=== PATIENT | male | born 1975 | race Caucasian/White ===

== ENCOUNTER 2017-08-08 16:04 | Emergency (ER) | payer MEDICARE, MEDICAID, OTHER ==
[2017-08-08] MEDS: ASPIRIN 325 MG TAB PO (17:12)
[2017-08-08] MEDS: LIDOCAINE/MYLANTA 40 ML BTL PO (17:22)
[2017-08-08 17:27] LABS: ADD MAN DIFF? NO
[2017-08-08 17:32] LABS: BASOPHILS % 0.3 % (0.0-2.0); EOSINOPHILS % 0.5 % (0.0-7.0); HEMATOCRIT 44.4 % (42.0-52.0); HEMOGLOBIN 14.7 g/dl (14.0-18.0); LYMPHOCYTES # 1.5 10^3/ul (0.8-2.9); LYMPHOCYTES % 17.2 % (15.0-51.0); MEAN CORPUSCULAR HEMOGLOBIN 28.1 pg (29.0-33.0); MEAN CORPUSCULAR HGB CONC 33.1 g/dl (32.0-37.0); MEAN CORPUSCULAR VOLUME 84.9 fl (82.0-101.0); MEAN PLATELET VOLUME 10.6 fl (7.4-10.4); MONOCYTE # 0.6 10^3/ul (0.3-0.9); MONOCYTES % 7.1 % (0.0-11.0); NEUTROPHIL # 6.5 10^3/ul (1.6-7.5); NEUTROPHILS % 73.8 % (39.0-77.0); PLATELET COUNT 280 10^3/UL (140-415); RED BLOOD COUNT 5.23 10^6/ul (4.70-6.10); RED CELL DISTRIBUTION WIDTH 13.9 % (11.5-14.5)
[2017-08-08 17:32] LABS: WHITE BLOOD COUNT 8.8 10^3/ul (4.8-10.8)
[2017-08-08 18:05] LABS: ANION GAP 16 (8-16); BLOOD UREA NITROGEN 18 mg/dl (7-20); CALCIUM 9.7 mg/dl (8.4-10.2); CARBON DIOXIDE 25 mmol/L (21-31); CHLORIDE 103 mmol/L (97-110); CREATININE 1.07 mg/dl (0.61-1.24); GLUCOSE 113 mg/dl (70-220); POTASSIUM 4.7 mmol/L (3.5-5.1); SODIUM 139 mmol/L (135-144)
[2017-08-08 18:15] LABS: B-TYPE NATRIURETIC PEPTIDE 31 PG/ML (0-125); TROPONIN-I < 0.012 ng/ml (0.00-0.12)
[2017-08-08] MEDS: NITROGLYCERIN (SL) 0.4 MG TAB SL (18:52)
[2017-08-08] MEDS: morphine 4 MG/ML VIAL IV (19:50)
[2017-08-08 22:53] LABS: CREATINE KINASE 45 IU/L (23-200); TROPONIN-I < 0.012 ng/ml (0.00-0.12)
[2017-08-08 22:57] LABS: CK INDEX 0.5
[2017-08-08 22:58] LABS: CK-MB < 0.22 ng/ml (0.0-2.4)
[2017-08-09] MEDS: KETOROLAC 30 MG INJ IV (00:24)
== END 2017-08-09 01:06 | disposition home or self-care (01) ==
LOC: E/R 08-09 01:06
DX: G89.18 Other acute postprocedural pain (principal); I10 Essential (primary) hypertension; R40.2142 Coma scale, eyes open, spontaneous, at arrival to emergency department; R40.2362 Coma scale, best motor response, obeys commands, at arrival to emergency department; R06.00 Dyspnea, unspecified
CPT/HCPCS: 36415; 71010; 74150; 80048; 82550; 82553; 83880; 84484; 85025; 93005; 96374; 96375; 99285-25

== ENCOUNTER 2017-08-26 23:53 | Emergency (ER) | payer MEDICARE, OTHER ==
[2017-08-27] MEDS: ACETAMINOPHEN 325 MG TAB PO (07:00)
[2017-08-27] MEDS: FAMOTIDINE 20 MG TAB PO (07:00)
[2017-08-27] MEDS ORDERED: RANITIDINE 150 MG TAB PO (07:00)
== END 2017-08-27 07:00 | disposition home or self-care (01) ==
LOC: FTE 23:53
DX: J06.9 Acute upper respiratory infection, unspecified (principal); I10 Essential (primary) hypertension
CPT/HCPCS: 93005; 99283-25

== ENCOUNTER 2017-09-17 16:38 | Emergency (ER) | payer MEDICARE, OTHER ==
[2017-09-17] MEDS: ALPRAZOLAM 1 MG TAB PO (20:25)
[2017-09-17] MEDS: NITROGLYCERIN (SL) 0.4 MG TAB SL (20:25)
[2017-09-17 20:49] LABS: TROPONIN-I < 0.012 ng/ml (0.00-0.12)
== END 2017-09-17 21:11 | disposition home or self-care (01) ==
LOC: E/R 16:38
DX: R07.9 Chest pain, unspecified (principal); I10 Essential (primary) hypertension; R40.2252 Coma scale, best verbal response, oriented, at arrival to emergency department; R40.2142 Coma scale, eyes open, spontaneous, at arrival to emergency department; R40.2362 Coma scale, best motor response, obeys commands, at arrival to emergency department
CPT/HCPCS: 84484; 99283

== ENCOUNTER 2017-09-22 16:59 | Inpatient (IN) | payer MEDICARE, OTHER ==
[2017-09-22] MEDS: ASPIRIN 81 MG TAB PO (23:51)
[2017-09-23 00:30] LABS: ADD MAN DIFF? NO
[2017-09-23 00:32] LABS: BASOPHILS % 0.3 % (0.0-2.0); EOSINOPHILS # 0.2 10^3/ul (0.0-0.5); EOSINOPHILS % 1.6 % (0.0-7.0); HEMATOCRIT 44.8 % (42.0-52.0); HEMOGLOBIN 15.1 g/dl (14.0-18.0); LYMPHOCYTES # 2.4 10^3/ul (0.8-2.9); MEAN CORPUSCULAR HEMOGLOBIN 28.5 pg (29.0-33.0); MEAN CORPUSCULAR HGB CONC 33.7 g/dl (32.0-37.0); MEAN CORPUSCULAR VOLUME 84.5 fl (82.0-101.0); MEAN PLATELET VOLUME 10.8 fl (7.4-10.4); MONOCYTE # 0.9 10^3/ul (0.3-0.9); NEUTROPHIL # 5.9 10^3/ul (1.6-7.5); NEUTROPHILS % 62.9 % (39.0-77.0); PLATELET COUNT 284 10^3/UL (140-415); RED CELL DISTRIBUTION WIDTH 14.2 % (11.5-14.5)
[2017-09-23 00:32] LABS: WHITE BLOOD COUNT 9.4 10^3/ul (4.8-10.8)
[2017-09-23 00:55] LABS: PROTIME 14.4 Sec (11.9-14.9); PT RATIO 1.1
[2017-09-23 00:56] LABS: ALANINE AMINOTRANSFERASE 35 IU/L (13-69); ALBUMIN 4.8 g/dl (3.3-4.9); ALBUMIN/GLOBULIN RATIO 1.29; ALKALINE PHOSPHATASE 118 IU/L (42-121); ANION GAP 15 (8-16); ASPARTATE AMINO TRANSFERASE 29 IU/L (15-46); BILIRUBIN,INDIRECT 0.3 mg/dl (0-1.1); BILIRUBIN,TOTAL 0.3 mg/dl (0.2-1.3); BLOOD UREA NITROGEN 17 mg/dl (7-20); CALCIUM 10.4 mg/dl (8.4-10.2); CARBON DIOXIDE 27 mmol/L (21-31); CHLORIDE 101 mmol/L (97-110); CREATININE 1.09 mg/dl (0.61-1.24); GLUCOSE 102 mg/dl (70-220); POTASSIUM 3.9 mmol/L (3.5-5.1); SODIUM 139 mmol/L (135-144); TOTAL PROTEIN 8.5 g/dl (6.1-8.1)
[2017-09-23 01:08] LABS: TROPONIN-I < 0.012 ng/ml (0.00-0.12)
[2017-09-23] MEDS: morphine 2 MG INJ IV ×5 (01:53→21:58)
[2017-09-23] MEDS ORDERED: ACETAMINOPHEN 325 MG TAB PO (02:30)
[2017-09-23 05:37] LABS: CREATINE KINASE 46 IU/L (23-200)
[2017-09-23 05:47] LABS: CK INDEX 0.7
[2017-09-23 05:56] LABS: TROPONIN-I < 0.012 ng/ml (0.00-0.12)
[2017-09-23] MEDS ORDERED: HYDROCODONE/APAP (5/325) TAB PO (10:00)
[2017-09-23] MEDS ORDERED: ACETAMINOPHEN 500 MG TAB PO (10:00)
[2017-09-23] MEDS: ONDANSETRON 4 MG INJ IV ×3 (10:13→21:57)
[2017-09-23] MEDS: ASPIRIN (EC) 325 MG TAB PO (11:58)
[2017-09-23] MEDS: GABAPENTIN 100 MG CAP PO (11:58)
[2017-09-23] MEDS: SERTRALINE 100 MG TAB PO (11:58)
[2017-09-23 15:50] LABS: CREATINE KINASE 46 IU/L (23-200)
[2017-09-23 16:03] LABS: CK INDEX 0.5
[2017-09-23 16:05] LABS: CK-MB 0.23 ng/ml (0.0-2.4); TROPONIN-I < 0.012 ng/ml (0.00-0.12)
[2017-09-23] MEDS: DIPHENHYDRAMINE 50 MG CAP PO (19:38)
[2017-09-23] MEDS: predniSONE 5 MG TAB PO ×2 (19:38→21:12)
[2017-09-23] MEDS: DIAZEPAM 5 MG TAB PO ×2 (20:21→20:22)
[2017-09-23] MEDS ORDERED: MAGNESIUM OXIDE 400 MG TAB PO (21:00)
[2017-09-23] MEDS: TAMSULOSIN (SR) 0.4 MG CAP PO (21:09)
[2017-09-23] MEDS: ISOSORBIDE DINITRATE 10 MG TAB PO (21:11)
[2017-09-23] MEDS: MAGNESIUM OXIDE 400 MG TAB PO (21:11)
[2017-09-23] MEDS: ATORVASTATIN 20 MG TAB PO (21:11)
[2017-09-23] MEDS: FAMOTIDINE 20 MG TAB PO (21:13)
[2017-09-23] MEDS: CYCLOSPORINE 100 MG CAP PO (21:14)
[2017-09-24] MEDS ORDERED: ONDANSETRON 4 MG INJ (02:52)
[2017-09-24] MEDS: ZOLPIDEM 5 MG TAB PO ×2 (02:54→23:53)
[2017-09-24] MEDS: morphine 2 MG INJ IV ×6 (02:54→22:05)
[2017-09-24 05:02] LABS: ADD MAN DIFF? NO
[2017-09-24 05:13] LABS: WHITE BLOOD COUNT 9.4 10^3/ul (4.8-10.8)
[2017-09-24 05:13] LABS: BASOPHILS % 0.2 % (0.0-2.0); EOSINOPHILS % 0.2 % (0.0-7.0); HEMOGLOBIN 15.1 g/dl (14.0-18.0); LYMPHOCYTES # 1.1 10^3/ul (0.8-2.9); LYMPHOCYTES % 12.1 % (15.0-51.0); MEAN CORPUSCULAR HGB CONC 33.6 g/dl (32.0-37.0); MEAN CORPUSCULAR VOLUME 83.5 fl (82.0-101.0); MEAN PLATELET VOLUME 10.7 fl (7.4-10.4); MONOCYTE # 0.5 10^3/ul (0.3-0.9); MONOCYTES % 4.9 % (0.0-11.0); NEUTROPHIL # 7.7 10^3/ul (1.6-7.5); PLATELET COUNT 297 10^3/UL (140-415); RED BLOOD COUNT 5.39 10^6/ul (4.70-6.10); RED CELL DISTRIBUTION WIDTH 13.5 % (11.5-14.5)
[2017-09-24 05:22] LABS: INR 1.11; PROTIME 14.5 Sec (11.9-14.9); PT RATIO 1.1
[2017-09-24 05:23] LABS: PARTIAL THROMBOPLASTIN TIME 29.9 Sec (25.0-35.0)
[2017-09-24 05:35] LABS: PHOSPHORUS 4.2 mg/dl (2.5-4.9)
[2017-09-24 05:35] LABS: MAGNESIUM 1.9 mg/dl (1.7-2.5)
[2017-09-24 05:38] LABS: CHOL/HDL RATIO 5.5 RATIO; CHOLESTEROL 212 mg/dl (100-200); HDL CHOLESTEROL 38 mg/dl (27-67); LDL CHOLESTEROL,CALCULATED 143 mg/dl; TRIGLYCERIDES 155 mg/dl (0-149)
[2017-09-24 05:38] LABS: CALCIUM 10.3 mg/dl (8.4-10.2)
[2017-09-24 05:39] LABS: ANION GAP 15 (8-16); BLOOD UREA NITROGEN 19 mg/dl (7-20); CALCIUM 10.4 mg/dl (8.4-10.2); CARBON DIOXIDE 25 mmol/L (21-31); CHLORIDE 101 mmol/L (97-110); CHOLESTEROL 217 mg/dl (100-200); CREATININE 1.02 mg/dl (0.61-1.24); GLUCOSE 125 mg/dl (70-220); POTASSIUM 4.6 mmol/L (3.5-5.1); SODIUM 136 mmol/L (135-144)
[2017-09-24] MEDS: NITROGLYCERIN (SL) 0.4 MG TAB SL ×2 (08:05→08:27)
[2017-09-24] MEDS: ISOSORBIDE DINITRATE 10 MG TAB PO ×3 (09:54→20:25)
[2017-09-24] MEDS: SERTRALINE 100 MG TAB PO (09:56)
[2017-09-24] MEDS: MAGNESIUM OXIDE 400 MG TAB PO ×2 (09:56→20:23)
[2017-09-24] MEDS: CYCLOSPORINE 25 MG CAP PO (09:57)
[2017-09-24] MEDS: LORAZEPAM 2 MG INJ IV (11:00)
[2017-09-24 11:35] LABS: ADD UMIC NO; UR ASCORBIC ACID NEGATIVE (NEGATIVE); UR BILIRUBIN (Dip) NEGATIVE (NEGATIVE); UR BLOOD (Dip) NEGATIVE (NEGATIVE); UR CLARITY CLEAR (CLEAR); UR COLOR YELLOW (YELLOW); UR GLUCOSE (Dip) NEGATIVE (NEGATIVE); UR KETONES (Dip) NEGATIVE (NEGATIVE); UR LEUKOCYTE ESTERASE (Dip) NEGATIVE Leu/ul (NEGATIVE); UR NITRITE (Dip) NEGATIVE (NEGATIVE); UR SPECIFIC GRAVITY (Dip) 1.006 (1.003-1.030); UR TOTAL PROTEIN (Dip) NEGATIVE (NEGATIVE); UR UROBILINOGEN (Dip) NEGATIVE (NEGATIVE)
[2017-09-24] MEDS ORDERED: LIDOCAINE 1% (MDV) 20 ML INJ (12:12)
[2017-09-24] MEDS ORDERED: IODIXANOL LOCM 100 ML BTL (12:12)
[2017-09-24] MEDS ORDERED: HEPARIN 1000 UNITS/ML 10 ML INJ (12:13)
[2017-09-24] MEDS ORDERED: FENTAnyl 50 MCG/ML VIAL (12:13)
[2017-09-24] MEDS ORDERED: VERAPAMIL 5 MG INJ (12:13)
[2017-09-24] MEDS ORDERED: MIDAZOLAM 1 MG/ML 2 ML INJ (12:13)
[2017-09-24] MEDS ORDERED: NITROGLYCERIN (IC) 100 MCG/ML INJ (12:14)
[2017-09-24] MEDS ORDERED: DOPamine-D5W 1.6 MG/ML 250 ML (13:27)
[2017-09-24] MEDS ORDERED: AL HYDROX/MG HYDROX/SIMETH 30 ML CUP PO (14:00)
[2017-09-24] MEDS ORDERED: ACETAMINOPHEN 325 MG TAB PO (14:00)
[2017-09-24] MEDS ORDERED: ONDANSETRON 4 MG INJ IV (14:00)
[2017-09-24] MEDS: SOD CHLORIDE 0.9% 1,000 ML IV (14:39)
[2017-09-24] MEDS: ASPIRIN (EC) 325 MG TAB PO (16:46)
[2017-09-24] MEDS: GABAPENTIN 100 MG CAP PO (16:46)
[2017-09-24] MEDS: FAMOTIDINE 20 MG TAB PO ×2 (16:46→20:23)
[2017-09-24] MEDS: CYCLOSPORINE 100 MG CAP PO (20:23)
[2017-09-24] MEDS: METOPROLOL 25 MG TAB PO (20:24)
[2017-09-24] MEDS: ATORVASTATIN 20 MG TAB PO (20:25)
[2017-09-24] MEDS: TAMSULOSIN (SR) 0.4 MG CAP PO (21:56)
[2017-09-25] MEDS: morphine 2 MG INJ IV ×5 (03:06→21:23)
[2017-09-25 08:16] LABS: ADD MAN DIFF? NO
[2017-09-25 08:21] LABS: WHITE BLOOD COUNT 7.8 10^3/ul (4.8-10.8)
[2017-09-25 08:21] LABS: BASOPHILS % 0.3 % (0.0-2.0); EOSINOPHILS # 0.2 10^3/ul (0.0-0.5); EOSINOPHILS % 2.3 % (0.0-7.0); HEMATOCRIT 41.8 % (42.0-52.0); HEMOGLOBIN 13.8 g/dl (14.0-18.0); LYMPHOCYTES # 1.9 10^3/ul (0.8-2.9); LYMPHOCYTES % 24.1 % (15.0-51.0); MEAN CORPUSCULAR HEMOGLOBIN 28.1 pg (29.0-33.0); MEAN CORPUSCULAR VOLUME 85.1 fl (82.0-101.0); MEAN PLATELET VOLUME 10.6 fl (7.4-10.4); MONOCYTE # 0.8 10^3/ul (0.3-0.9); NEUTROPHIL # 4.8 10^3/ul (1.6-7.5); NEUTROPHILS % 62.3 % (39.0-77.0); PLATELET COUNT 246 10^3/UL (140-415); RED BLOOD COUNT 4.91 10^6/ul (4.70-6.10); RED CELL DISTRIBUTION WIDTH 13.4 % (11.5-14.5)
[2017-09-25] MEDS: SERTRALINE 100 MG TAB PO (08:32)
[2017-09-25] MEDS: FAMOTIDINE 20 MG TAB PO ×2 (08:32→20:22)
[2017-09-25] MEDS: predniSONE 5 MG TAB PO (08:32)
[2017-09-25] MEDS: ASPIRIN (EC) 325 MG TAB PO (08:32)
[2017-09-25] MEDS: MAGNESIUM OXIDE 400 MG TAB PO ×2 (08:32→20:22)
[2017-09-25] MEDS: GABAPENTIN 100 MG CAP PO (08:32)
[2017-09-25] MEDS: ISOSORBIDE DINITRATE 10 MG TAB PO ×2 (08:35→12:15)
[2017-09-25] MEDS: METOPROLOL 25 MG TAB PO ×2 (08:35→20:22)
[2017-09-25 08:44] LABS: ANION GAP 13 (8-16); BLOOD UREA NITROGEN 16 mg/dl (7-20); CALCIUM 9.9 mg/dl (8.4-10.2); CARBON DIOXIDE 30 mmol/L (21-31); CHLORIDE 98 mmol/L (97-110); CREATININE 1.09 mg/dl (0.61-1.24); GLUCOSE 89 mg/dl (70-220); PHOSPHORUS 4.2 mg/dl (2.5-4.9); POTASSIUM 4.3 mmol/L (3.5-5.1); SODIUM 137 mmol/L (135-144)
[2017-09-25] MEDS: CYCLOSPORINE 25 MG CAP PO (09:00)
[2017-09-25] MEDS: LISINOPRIL 10 MG TAB PO (16:01)
[2017-09-25] MEDS: CYCLOSPORINE 100 MG CAP PO (20:22)
[2017-09-25] MEDS: TAMSULOSIN (SR) 0.4 MG CAP PO (20:22)
[2017-09-25] MEDS: ATORVASTATIN 20 MG TAB PO (20:22)
[2017-09-25] MEDS: ZOLPIDEM 5 MG TAB PO (22:56)
[2017-09-26] MEDS: morphine 2 MG INJ IV ×5 (04:44→20:05)
[2017-09-26] MEDS: predniSONE 5 MG TAB PO (08:32)
[2017-09-26] MEDS: ASPIRIN (EC) 325 MG TAB PO (08:32)
[2017-09-26] MEDS: SERTRALINE 100 MG TAB PO (08:32)
[2017-09-26] MEDS: FAMOTIDINE 20 MG TAB PO ×2 (08:32→20:51)
[2017-09-26] MEDS: MAGNESIUM OXIDE 400 MG TAB PO ×2 (08:32→20:05)
[2017-09-26] MEDS: GABAPENTIN 100 MG CAP PO (08:32)
[2017-09-26] MEDS: LISINOPRIL 10 MG TAB PO (08:33)
[2017-09-26] MEDS: METOPROLOL 25 MG TAB PO ×2 (08:37→20:05)
[2017-09-26] MEDS: CYCLOSPORINE 25 MG CAP PO (08:37)
[2017-09-26 12:41] LABS: ADD UMIC YES; UR ASCORBIC ACID NEGATIVE (NEGATIVE); UR BACTERIA MANY /HPF (NONE SEEN); UR BILIRUBIN (Dip) NEGATIVE (NEGATIVE); UR BLOOD (Dip) 2+ mg/dL (NEGATIVE); UR CLARITY CLEAR (CLEAR); UR COLOR STRAW (YELLOW); UR GLUCOSE (Dip) NEGATIVE (NEGATIVE); UR KETONES (Dip) NEGATIVE (NEGATIVE); UR LEUKOCYTE ESTERASE (Dip) NEGATIVE Leu/ul (NEGATIVE); UR NITRITE (Dip) NEGATIVE (NEGATIVE); UR RBC 1 /HPF (0-5); UR SPECIFIC GRAVITY (Dip) 1.003 (1.003-1.030); UR TOTAL PROTEIN (Dip) NEGATIVE (NEGATIVE); UR UROBILINOGEN (Dip) NEGATIVE (NEGATIVE); UR WBC 1 /HPF (0-5)
[2017-09-26] MEDS: ATORVASTATIN 20 MG TAB PO (20:05)
[2017-09-26] MEDS: TAMSULOSIN (SR) 0.4 MG CAP PO (20:06)
[2017-09-26] MEDS: CYCLOSPORINE 100 MG CAP PO (20:18)
[2017-09-26] MEDS: ZOLPIDEM 5 MG TAB PO (22:43)
[2017-09-27] MEDS: morphine 2 MG INJ IV ×4 (01:14→14:58)
[2017-09-27] MEDS: ASPIRIN (EC) 325 MG TAB PO (08:57)
[2017-09-27] MEDS: MAGNESIUM OXIDE 400 MG TAB PO (08:57)
[2017-09-27] MEDS: FAMOTIDINE 20 MG TAB PO (08:58)
[2017-09-27] MEDS: METOPROLOL 25 MG TAB PO (08:58)
[2017-09-27] MEDS: GABAPENTIN 100 MG CAP PO (08:58)
[2017-09-27] MEDS: LISINOPRIL 10 MG TAB PO (08:58)
[2017-09-27] MEDS: predniSONE 5 MG TAB PO (08:58)
[2017-09-27] MEDS: SERTRALINE 100 MG TAB PO (08:58)
[2017-09-27 09:27] LABS: ADD MAN DIFF? NO
[2017-09-27 09:32] LABS: WHITE BLOOD COUNT 13.3 10^3/ul (4.8-10.8)
[2017-09-27 09:32] LABS: BASOPHILS % 0.3 % (0.0-2.0); EOSINOPHILS # 0.1 10^3/ul (0.0-0.5); EOSINOPHILS % 1.1 % (0.0-7.0); HEMATOCRIT 43.7 % (42.0-52.0); HEMOGLOBIN 14.4 g/dl (14.0-18.0); LYMPHOCYTES # 2.2 10^3/ul (0.8-2.9); LYMPHOCYTES % 16.7 % (15.0-51.0); MEAN CORPUSCULAR HEMOGLOBIN 28.5 pg (29.0-33.0); MEAN CORPUSCULAR VOLUME 86.4 fl (82.0-101.0); MEAN PLATELET VOLUME 11.1 fl (7.4-10.4); MONOCYTES % 7.5 % (0.0-11.0); NEUTROPHIL # 9.8 10^3/ul (1.6-7.5); NEUTROPHILS % 73.6 % (39.0-77.0); PLATELET COUNT 258 10^3/UL (140-415); RED BLOOD COUNT 5.06 10^6/ul (4.70-6.10); RED CELL DISTRIBUTION WIDTH 13.7 % (11.5-14.5)
[2017-09-27 10:00] LABS: ANION GAP 14 (8-16); BLOOD UREA NITROGEN 18 mg/dl (7-20); CALCIUM 9.6 mg/dl (8.4-10.2); CARBON DIOXIDE 27 mmol/L (21-31); CHLORIDE 102 mmol/L (97-110); CREATININE 1.02 mg/dl (0.61-1.24); GLUCOSE 86 mg/dl (70-220); POTASSIUM 4.4 mmol/L (3.5-5.1); SODIUM 139 mmol/L (135-144)
[2017-09-27] MEDS: CYCLOSPORINE 25 MG CAP PO (12:22)
== END 2017-09-27 19:20 | disposition home or self-care (01) | DRG 287 ==
LOC: E/R 16:59 → MS3 09-23 02:05 → MS4 09-24 21:06
PROC: 4A023N7 Measurement of Cardiac Sampling and Pressure, Left Heart, Percutaneous Approach (ICD-10-PCS; principal; 2017-09-24 12:00)
PROC: B211YZZ Fluoroscopy of Multiple Coronary Arteries using Other Contrast (ICD-10-PCS; 2017-09-24 12:00)
PROC: B215YZZ Fluoroscopy of Left Heart using Other Contrast (ICD-10-PCS; 2017-09-24 12:00)
DX: I25.10 Atherosclerotic heart disease of native coronary artery without angina pectoris (principal); I42.9 Cardiomyopathy, unspecified; I47.1 Supraventricular tachycardia; Z94.0 Kidney transplant status; E83.52 Hypercalcemia; I10 Essential (primary) hypertension; N40.0 Benign prostatic hyperplasia without lower urinary tract symptoms; E78.5 Hyperlipidemia, unspecified; K21.9 Gastro-esophageal reflux disease without esophagitis; F41.9 Anxiety disorder, unspecified; F32.9 Major depressive disorder, single episode, unspecified
CPT/HCPCS: 36415; 71045; 71046; 80048; 80053; 80061; 81001; 81003; 82306; 82310; 82465; 82550; 82553; 83735; 83970; 84100; 84443; 84484; 85025; 85610; 85730; 93005; 93306; 93458; 96374; 99285-25

== ENCOUNTER 2017-10-06 19:28 | Emergency (ER) | payer MEDICARE, MEDICAID, OTHER ==
[2017-10-06] MEDS: ASPIRIN 325 MG TAB PO (21:59)
[2017-10-06] MEDS: KETOROLAC 30 MG INJ IV (22:00)
[2017-10-06 22:12] LABS: ADD MAN DIFF? NO
[2017-10-06 22:32] LABS: WHITE BLOOD COUNT 12.3 10^3/ul (4.8-10.8)
[2017-10-06 22:32] LABS: BASOPHILS % 0.3 % (0.0-2.0); EOSINOPHILS # 0.2 10^3/ul (0.0-0.5); EOSINOPHILS % 1.3 % (0.0-7.0); HEMATOCRIT 43.3 % (42.0-52.0); HEMOGLOBIN 14.6 g/dl (14.0-18.0); LYMPHOCYTES # 2.6 10^3/ul (0.8-2.9); LYMPHOCYTES % 20.8 % (15.0-51.0); MEAN CORPUSCULAR HEMOGLOBIN 28.8 pg (29.0-33.0); MEAN CORPUSCULAR HGB CONC 33.7 g/dl (32.0-37.0); MEAN CORPUSCULAR VOLUME 85.4 fl (82.0-101.0); MEAN PLATELET VOLUME 10.5 fl (7.4-10.4); MONOCYTE # 1.1 10^3/ul (0.3-0.9); MONOCYTES % 8.8 % (0.0-11.0); NEUTROPHIL # 8.3 10^3/ul (1.6-7.5); NEUTROPHILS % 67.3 % (39.0-77.0); PLATELET COUNT 315 10^3/UL (140-415); RED BLOOD COUNT 5.07 10^6/ul (4.70-6.10); RED CELL DISTRIBUTION WIDTH 13.7 % (11.5-14.5)
[2017-10-06 22:47] LABS: ANION GAP 15 (8-16); BLOOD UREA NITROGEN 22 mg/dl (7-20); CARBON DIOXIDE 26 mmol/L (21-31); CHLORIDE 100 mmol/L (97-110); CREATININE 1.02 mg/dl (0.61-1.24); GLUCOSE 97 mg/dl (70-220); POTASSIUM 4.5 mmol/L (3.5-5.1); SODIUM 136 mmol/L (135-144)
[2017-10-06 22:58] LABS: B-TYPE NATRIURETIC PEPTIDE 57 PG/ML (0-125)
[2017-10-06 22:59] LABS: TROPONIN-I < 0.012 ng/ml (0.00-0.12)
== END 2017-10-07 00:10 | disposition home or self-care (01) ==
LOC: E/R 10-07 00:10
DX: R07.9 Chest pain, unspecified (principal); I10 Essential (primary) hypertension; Z79.82 Long term (current) use of aspirin
CPT/HCPCS: 36415; 71045; 80048; 83880; 84484; 85025; 93005; 96374; 99285-25

== ENCOUNTER 2017-10-18 14:41 | Emergency (ER) | payer MEDICARE, OTHER, MEDICAID ==
[2017-10-18] MEDS: OXYCODONE/ACETAMINOPHEN (5/325) TAB PO (19:36)
[2017-10-18 20:02] LABS: ADD MAN DIFF? NO
[2017-10-18 20:04] LABS: WHITE BLOOD COUNT 12.6 10^3/ul (4.8-10.8)
[2017-10-18 20:04] LABS: BASOPHIL # 0.1 10^3/ul (0.0-0.1); BASOPHILS % 0.4 % (0.0-2.0); EOSINOPHILS # 0.1 10^3/ul (0.0-0.5); EOSINOPHILS % 0.8 % (0.0-7.0); HEMATOCRIT 42.9 % (42.0-52.0); HEMOGLOBIN 14.2 g/dl (14.0-18.0); LYMPHOCYTES # 2.5 10^3/ul (0.8-2.9); MEAN CORPUSCULAR HGB CONC 33.1 g/dl (32.0-37.0); MEAN CORPUSCULAR VOLUME 87.6 fl (82.0-101.0); MEAN PLATELET VOLUME 11.3 fl (7.4-10.4); MONOCYTES % 8.2 % (0.0-11.0); NEUTROPHIL # 8.7 10^3/ul (1.6-7.5); PLATELET COUNT 262 10^3/UL (140-415)
[2017-10-18] MEDS: LORAZEPAM 0.5 MG TAB PO (20:10)
[2017-10-18 20:13] LABS: ANION GAP 18 (8-16); BLOOD UREA NITROGEN 25 mg/dl (7-20); CALCIUM 10.1 mg/dl (8.4-10.2); CARBON DIOXIDE 26 mmol/L (21-31); CHLORIDE 104 mmol/L (97-110); CREATININE 0.94 mg/dl (0.61-1.24); GLUCOSE 103 mg/dl (70-220); POTASSIUM 4.5 mmol/L (3.5-5.1); SODIUM 143 mmol/L (135-144)
[2017-10-18 20:29] LABS: TROPONIN-I < 0.012 ng/ml (0.00-0.12)
== END 2017-10-18 20:39 | disposition home or self-care (01) ==
LOC: E/R 14:41
DX: R07.9 Chest pain, unspecified (principal); F41.9 Anxiety disorder, unspecified; I10 Essential (primary) hypertension; I25.10 Atherosclerotic heart disease of native coronary artery without angina pectoris; Z79.82 Long term (current) use of aspirin
CPT/HCPCS: 36415; 71045; 80048; 84484; 85025; 93005; 99285-25

== ENCOUNTER 2017-10-25 16:35 | Emergency (ER) | payer MEDICARE, OTHER ==
[2017-10-25 20:46] LABS: ADD MAN DIFF? NO
[2017-10-25 20:48] LABS: WHITE BLOOD COUNT 10.5 10^3/ul (4.8-10.8)
[2017-10-25 20:48] LABS: BASOPHILS % 0.4 % (0.0-2.0); EOSINOPHILS # 0.1 10^3/ul (0.0-0.5); EOSINOPHILS % 0.9 % (0.0-7.0); HEMATOCRIT 39.7 % (42.0-52.0); HEMOGLOBIN 13.3 g/dl (14.0-18.0); LYMPHOCYTES # 2.3 10^3/ul (0.8-2.9); LYMPHOCYTES % 22.2 % (15.0-51.0); MEAN CORPUSCULAR HEMOGLOBIN 28.9 pg (29.0-33.0); MEAN CORPUSCULAR HGB CONC 33.5 g/dl (32.0-37.0); MEAN CORPUSCULAR VOLUME 86.1 fl (82.0-101.0); MEAN PLATELET VOLUME 10.2 fl (7.4-10.4); MONOCYTE # 0.9 10^3/ul (0.3-0.9); MONOCYTES % 8.2 % (0.0-11.0); NEUTROPHILS % 66.4 % (39.0-77.0); PLATELET COUNT 269 10^3/UL (140-415); RED BLOOD COUNT 4.61 10^6/ul (4.70-6.10); RED CELL DISTRIBUTION WIDTH 14.1 % (11.5-14.5)
[2017-10-25] MEDS: morphine 4 MG/ML VIAL IV (20:48)
[2017-10-25] MEDS: ONDANSETRON 4 MG INJ IV (20:48)
[2017-10-25] MEDS: TETRACAINE 0.5% 4 ML OPH BOTH EYES (20:48)
[2017-10-25] MEDS: LACTATED RINGER'S 1,000 ML IV (20:48)
[2017-10-25 21:09] LABS: INR 1.01; PROTIME 13.4 Sec (11.9-14.9)
[2017-10-25 21:10] LABS: PARTIAL THROMBOPLASTIN TIME 26.9 Sec (25.0-35.0)
[2017-10-25 21:13] LABS: ANION GAP 17 (8-16); BLOOD UREA NITROGEN 17 mg/dl (7-20); CALCIUM 9.9 mg/dl (8.4-10.2); CARBON DIOXIDE 26 mmol/L (21-31); CHLORIDE 103 mmol/L (97-110); CREATININE 0.96 mg/dl (0.61-1.24); GLUCOSE 90 mg/dl (70-220); POTASSIUM 4.5 mmol/L (3.5-5.1); SODIUM 141 mmol/L (135-144)
[2017-10-25] MEDS: KETOROLAC 30 MG INJ IV (22:19)
[2017-10-25] MEDS: DIPHENHYDRAMINE 50 MG INJ IV (22:42)
[2017-10-25] MEDS: METOCLOPRAMIDE 10 MG INJ IV (22:42)
== END 2017-10-25 23:28 | disposition home or self-care (01) ==
LOC: FTE 16:35
DX: R51 Headache (principal); I10 Essential (primary) hypertension; R55 Syncope and collapse; Z79.82 Long term (current) use of aspirin
CPT/HCPCS: 36415; 70450; 80048; 85025; 85610; 85730; 96374; 96375; 99285-25

== ENCOUNTER 2017-10-30 23:14 | Emergency (ER) | payer MEDICARE, OTHER ==
[2017-10-31] MEDS: morphine 4 MG/ML VIAL IV (08:54)
[2017-10-31] MEDS: SOD CHLORIDE 0.9% 1,000 ML IV (08:54)
[2017-10-31] MEDS: MECLIZINE 12.5 MG TAB PO (08:54)
[2017-10-31] MEDS: ONDANSETRON 4 MG INJ IV ×2 (08:54→11:38)
[2017-10-31 09:04] LABS: ADD MAN DIFF? NO
[2017-10-31 09:09] LABS: WHITE BLOOD COUNT 7.1 10^3/ul (4.8-10.8)
[2017-10-31 09:09] LABS: BASOPHILS % 0.3 % (0.0-2.0); EOSINOPHILS # 0.1 10^3/ul (0.0-0.5); EOSINOPHILS % 1.8 % (0.0-7.0); HEMATOCRIT 39.1 % (42.0-52.0); HEMOGLOBIN 13.3 g/dl (14.0-18.0); LYMPHOCYTES # 2.3 10^3/ul (0.8-2.9); LYMPHOCYTES % 32.1 % (15.0-51.0); MEAN CORPUSCULAR HEMOGLOBIN 28.7 pg (29.0-33.0); MEAN CORPUSCULAR VOLUME 84.3 fl (82.0-101.0); MEAN PLATELET VOLUME 10.3 fl (7.4-10.4); MONOCYTE # 0.8 10^3/ul (0.3-0.9); MONOCYTES % 11.2 % (0.0-11.0); NEUTROPHIL # 3.8 10^3/ul (1.6-7.5); NEUTROPHILS % 53.5 % (39.0-77.0); PLATELET COUNT 287 10^3/UL (140-415); RED BLOOD COUNT 4.64 10^6/ul (4.70-6.10); RED CELL DISTRIBUTION WIDTH 14.2 % (11.5-14.5)
[2017-10-31 09:12] LABS: INR 1.11; PROTIME 14.5 Sec (11.9-14.9); PT RATIO 1.1
[2017-10-31 09:13] LABS: PARTIAL THROMBOPLASTIN TIME 30.2 Sec (25.0-35.0)
[2017-10-31 09:16] LABS: ALANINE AMINOTRANSFERASE 36 IU/L (13-69); ALBUMIN 4.7 g/dl (3.3-4.9); ALBUMIN/GLOBULIN RATIO 1.46; ALKALINE PHOSPHATASE 104 IU/L (42-121); ANION GAP 16 (8-16); ASPARTATE AMINO TRANSFERASE 34 IU/L (15-46); BILIRUBIN,INDIRECT 0.6 mg/dl (0-1.1); BILIRUBIN,TOTAL 0.6 mg/dl (0.2-1.3); BLOOD UREA NITROGEN 14 mg/dl (7-20); CARBON DIOXIDE 26 mmol/L (21-31); CHLORIDE 102 mmol/L (97-110); CREATININE 1.06 mg/dl (0.61-1.24); GLUCOSE 83 mg/dl (70-220); POTASSIUM 4.1 mmol/L (3.5-5.1); SODIUM 140 mmol/L (135-144); TOTAL PROTEIN 7.9 g/dl (6.1-8.1)
[2017-10-31] MEDS: HYDROmorphONE 0.5 MG/0.5 ML SYG IV (11:38)
[2017-10-31 12:23] LABS: MAGNESIUM 1.7 mg/dl (1.7-2.5)
== END 2017-10-31 15:06 | disposition short-term general hospital (02) ==
LOC: E/R 23:14
DX: R42 Dizziness and giddiness (principal); I10 Essential (primary) hypertension; R11.0 Nausea; R07.9 Chest pain, unspecified; Z79.82 Long term (current) use of aspirin
CPT/HCPCS: 80053; 82962; 83735; 85025; 85610; 85730; 93005; 96374; 96375; 96376; 99284-25

== ENCOUNTER 2017-11-12 20:01 | Emergency (ER) | payer MEDICARE, OTHER ==
[2017-11-12 23:15] LABS: ADD MAN DIFF? NO
[2017-11-12 23:16] LABS: BASOPHILS % 0.3 % (0.0-2.0); EOSINOPHILS # 0.1 10^3/ul (0.0-0.5); EOSINOPHILS % 1.1 % (0.0-7.0); HEMATOCRIT 37.7 % (42.0-52.0); LYMPHOCYTES # 2.1 10^3/ul (0.8-2.9); LYMPHOCYTES % 25.9 % (15.0-51.0); MEAN CORPUSCULAR HEMOGLOBIN 28.9 pg (29.0-33.0); MEAN CORPUSCULAR HGB CONC 34.5 g/dl (32.0-37.0); MEAN CORPUSCULAR VOLUME 83.8 fl (82.0-101.0); MEAN PLATELET VOLUME 10.1 fl (7.4-10.4); MONOCYTE # 0.8 10^3/ul (0.3-0.9); MONOCYTES % 9.9 % (0.0-11.0); NEUTROPHILS % 61.9 % (39.0-77.0); PLATELET COUNT 275 10^3/UL (140-415); RED CELL DISTRIBUTION WIDTH 14.4 % (11.5-14.5)
[2017-11-12] MEDS: LORAZEPAM 1 MG TAB PO (23:34)
[2017-11-12 23:35] LABS: ANION GAP 17 (8-16); BLOOD UREA NITROGEN 12 mg/dl (7-20); CALCIUM 9.7 mg/dl (8.4-10.2); CARBON DIOXIDE 23 mmol/L (21-31); CHLORIDE 104 mmol/L (97-110); CREATININE 0.93 mg/dl (0.61-1.24); GLUCOSE 94 mg/dl (70-220); POTASSIUM 3.9 mmol/L (3.5-5.1); SODIUM 140 mmol/L (135-144)
[2017-11-12] MEDS: KETOROLAC 15 MG INJ IV (23:35)
[2017-11-13 00:03] LABS: TROPONIN-I < 0.012 ng/ml (0.00-0.12)
== END 2017-11-13 01:34 | disposition home or self-care (01) ==
LOC: E/R 20:01
DX: R07.89 Other chest pain (principal); F41.9 Anxiety disorder, unspecified; I10 Essential (primary) hypertension; R40.2142 Coma scale, eyes open, spontaneous, at arrival to emergency department; R40.2252 Coma scale, best verbal response, oriented, at arrival to emergency department; R40.2362 Coma scale, best motor response, obeys commands, at arrival to emergency department; Z94.0 Kidney transplant status; Z79.82 Long term (current) use of aspirin
CPT/HCPCS: 36415; 71045; 80048; 84484; 85025; 93005; 96374; 99285-25

== ENCOUNTER 2017-11-26 16:54 | Observation (INO) | payer MEDICARE, OTHER ==
[2017-11-26] MEDS: SOD CHLORIDE 0.9% 500 ML IV (20:53)
[2017-11-26] MEDS: ASPIRIN 325 MG TAB PO (20:54)
[2017-11-26 21:15] LABS: ADD MAN DIFF? NO
[2017-11-26 21:19] LABS: WHITE BLOOD COUNT 8.6 10^3/ul (4.8-10.8)
[2017-11-26 21:19] LABS: BASOPHILS % 0.1 % (0.0-2.0); EOSINOPHILS # 0.1 10^3/ul (0.0-0.5); EOSINOPHILS % 0.7 % (0.0-7.0); HEMOGLOBIN 14.2 g/dl (14.0-18.0); LYMPHOCYTES # 1.8 10^3/ul (0.8-2.9); LYMPHOCYTES % 21.2 % (15.0-51.0); MEAN CORPUSCULAR HEMOGLOBIN 29.4 pg (29.0-33.0); MEAN CORPUSCULAR HGB CONC 33.8 g/dl (32.0-37.0); MEAN PLATELET VOLUME 10.7 fl (7.4-10.4); MONOCYTE # 0.7 10^3/ul (0.3-0.9); MONOCYTES % 8.3 % (0.0-11.0); NEUTROPHIL # 5.9 10^3/ul (1.6-7.5); NEUTROPHILS % 68.5 % (39.0-77.0); PLATELET COUNT 291 10^3/UL (140-415); RED BLOOD COUNT 4.83 10^6/ul (4.70-6.10); RED CELL DISTRIBUTION WIDTH 13.9 % (11.5-14.5)
[2017-11-26 21:37] LABS: ALANINE AMINOTRANSFERASE 31 IU/L (13-69); ALBUMIN 4.8 g/dl (3.3-4.9); ALKALINE PHOSPHATASE 100 IU/L (42-121); ANION GAP 16 (8-16); ASPARTATE AMINO TRANSFERASE 24 IU/L (15-46); BILIRUBIN,INDIRECT 0.2 mg/dl (0-1.1); BILIRUBIN,TOTAL 0.2 mg/dl (0.2-1.3); BLOOD UREA NITROGEN 10 mg/dl (7-20); CARBON DIOXIDE 25 mmol/L (21-31); CHLORIDE 105 mmol/L (97-110); CREATININE 1.03 mg/dl (0.61-1.24); GLUCOSE 107 mg/dl (70-220); LIPASE 92 U/L (23-300); POTASSIUM 4.1 mmol/L (3.5-5.1); SODIUM 142 mmol/L (135-144)
[2017-11-26 21:40] LABS: INR 1.09; PARTIAL THROMBOPLASTIN TIME 28.6 Sec (25.0-35.0); PROTIME 14.2 Sec (11.9-14.9); PT RATIO 1.1
[2017-11-26 21:48] LABS: B-TYPE NATRIURETIC PEPTIDE 35 PG/ML (0-125)
[2017-11-26 22:03] LABS: TROPONIN-I < 0.012 ng/ml (0.00-0.12)
[2017-11-27] MEDS: NITROGLYCERIN (SL) 0.4 MG TAB SL (01:07)
[2017-11-27] MEDS: LIDOCAINE/MYLANTA 40 ML BTL PO (01:07)
[2017-11-27 01:43] LABS: MAGNESIUM 1.6 mg/dl (1.7-2.5)
[2017-11-27] MEDS ORDERED: MECLIZINE 25 MG TAB PO (03:00)
[2017-11-27] MEDS: MAGNESIUM SULFATE 2 GM/50 ML 50 ML IVPB (03:31)
[2017-11-27] MEDS: morphine 2 MG INJ IV ×5 (03:31→21:11)
[2017-11-27 04:13] LABS: ADD MAN DIFF? NO
[2017-11-27 04:14] LABS: BASOPHILS % 0.4 % (0.0-2.0); EOSINOPHILS # 0.1 10^3/ul (0.0-0.5); EOSINOPHILS % 1.3 % (0.0-7.0); HEMOGLOBIN 13.5 g/dl (14.0-18.0); LYMPHOCYTES # 2.2 10^3/ul (0.8-2.9); LYMPHOCYTES % 23.8 % (15.0-51.0); MEAN CORPUSCULAR HEMOGLOBIN 28.8 pg (29.0-33.0); MEAN CORPUSCULAR HGB CONC 33.8 g/dl (32.0-37.0); MEAN CORPUSCULAR VOLUME 85.5 fl (82.0-101.0); MEAN PLATELET VOLUME 10.4 fl (7.4-10.4); MONOCYTE # 0.9 10^3/ul (0.3-0.9); MONOCYTES % 9.1 % (0.0-11.0); NEUTROPHILS % 64.5 % (39.0-77.0); PLATELET COUNT 260 10^3/UL (140-415); RED BLOOD COUNT 4.68 10^6/ul (4.70-6.10)
[2017-11-27 04:14] LABS: WHITE BLOOD COUNT 9.3 10^3/ul (4.8-10.8)
[2017-11-27 04:39] LABS: ANION GAP 17 (8-16); BLOOD UREA NITROGEN 13 mg/dl (7-20); CARBON DIOXIDE 24 mmol/L (21-31); CHLORIDE 106 mmol/L (97-110); CHOL/HDL RATIO 5.8 RATIO; CHOLESTEROL 210 mg/dl (100-200); CREATININE 0.91 mg/dl (0.61-1.24); GLUCOSE 96 mg/dl (70-220); HDL CHOLESTEROL 36 mg/dl (27-67); LDL CHOLESTEROL,CALCULATED 105 mg/dl; POTASSIUM 3.9 mmol/L (3.5-5.1); SODIUM 143 mmol/L (135-144); TRIGLYCERIDES 346 mg/dl (0-149)
[2017-11-27 04:41] LABS: CALCIUM 9.7 mg/dl (8.4-10.2); CREATINE KINASE 45 IU/L (23-200)
[2017-11-27 04:49] LABS: CK INDEX 0.7; CK-MB 0.31 ng/ml (0.0-2.4); TROPONIN-I < 0.012 ng/ml (0.00-0.12)
[2017-11-27 08:28] LABS: MAGNESIUM 1.6 mg/dl (1.7-2.5)
[2017-11-27] MEDS: SERTRALINE 100 MG TAB PO (08:45)
[2017-11-27] MEDS: LISINOPRIL 10 MG TAB PO (08:45)
[2017-11-27] MEDS: predniSONE 5 MG TAB PO (08:46)
[2017-11-27] MEDS: METOPROLOL 25 MG TAB PO ×2 (08:46→21:00)
[2017-11-27] MEDS: FAMOTIDINE 20 MG TAB PO ×2 (08:46→21:35)
[2017-11-27] MEDS: NAPROXEN 500 MG TAB PO (08:46)
[2017-11-27] MEDS: RANITIDINE 150 MG TAB PO (08:46)
[2017-11-27] MEDS: GABAPENTIN 100 MG CAP PO (08:46)
[2017-11-27 12:06] LABS: CREATINE KINASE 47 IU/L (23-200)
[2017-11-27 12:18] LABS: CK INDEX 0.7
[2017-11-27 12:22] LABS: CK-MB 0.31 ng/ml (0.0-2.4); TROPONIN-I < 0.012 ng/ml (0.00-0.12)
[2017-11-27] MEDS ORDERED: MAGNESIUM SULFATE 2 GM/50 ML 50 ML IVPB (13:30)
[2017-11-27] MEDS: CYCLOSPORINE 25 MG CAP PO (13:33)
[2017-11-27] MEDS: CYCLOSPORINE 100 MG CAP PO ×2 (14:00→21:10)
[2017-11-27 18:10] LABS: TROPONIN-I < 0.012 ng/ml (0.00-0.12)
[2017-11-27] MEDS: ONDANSETRON 4 MG INJ IV (18:29)
[2017-11-27 19:21] LABS: ERYTHROCYTE SEDIMENTATION RATE 4 mm/Hr (0-15)
[2017-11-27] MEDS ORDERED: CYCLOSPORINE 25 MG CAP PO (21:00)
[2017-11-27] MEDS: ATORVASTATIN 40 MG TAB PO (21:10)
[2017-11-27] MEDS: TAMSULOSIN (SR) 0.4 MG CAP PO (21:10)
[2017-11-27] MEDS: ZOLPIDEM 5 MG TAB PO (23:11)
[2017-11-28 01:23] LABS: TROPONIN-I < 0.012 ng/ml (0.00-0.12)
[2017-11-28] MEDS: morphine 2 MG INJ IV ×3 (03:59→21:32)
[2017-11-28 07:00] LABS: TROPONIN-I < 0.012 ng/ml (0.00-0.12)
[2017-11-28] MEDS: FAMOTIDINE 20 MG TAB PO ×2 (08:56→21:31)
[2017-11-28] MEDS: SERTRALINE 100 MG TAB PO (08:56)
[2017-11-28] MEDS: METOPROLOL 25 MG TAB PO ×2 (08:57→21:31)
[2017-11-28] MEDS: LISINOPRIL 10 MG TAB PO (08:57)
[2017-11-28] MEDS: predniSONE 5 MG TAB PO (08:57)
[2017-11-28] MEDS: GABAPENTIN 100 MG CAP PO (08:57)
[2017-11-28] MEDS: CYCLOSPORINE 25 MG CAP PO (08:58)
[2017-11-28] MEDS: CYCLOSPORINE 100 MG CAP PO ×2 (08:59→21:31)
[2017-11-28] MEDS: ENOXAPARIN 30 MG/0.3 ML SYG SC (09:13)
[2017-11-28 14:17] LABS: TROPONIN-I < 0.012 ng/ml (0.00-0.12)
[2017-11-28 18:18] LABS: TROPONIN-I < 0.012 ng/ml (0.00-0.12)
[2017-11-28] MEDS: HYDROCODONE/APAP (5/325) TAB PO (18:28)
[2017-11-28] MEDS: TAMSULOSIN (SR) 0.4 MG CAP PO (21:31)
[2017-11-28] MEDS: ATORVASTATIN 40 MG TAB PO (21:31)
[2017-11-28] MEDS: ZOLPIDEM 5 MG TAB PO (23:31)
[2017-11-29 01:20] LABS: TROPONIN-I < 0.012 ng/ml (0.00-0.12)
[2017-11-29] MEDS: morphine 2 MG INJ IV ×4 (03:07→20:29)
[2017-11-29] MEDS: FAMOTIDINE 20 MG TAB PO ×2 (07:48→20:29)
[2017-11-29] MEDS: CYCLOSPORINE 25 MG CAP PO (07:48)
[2017-11-29] MEDS: CYCLOSPORINE 100 MG CAP PO ×2 (07:59→20:29)
[2017-11-29] MEDS: predniSONE 5 MG TAB PO (07:59)
[2017-11-29] MEDS: GABAPENTIN 100 MG CAP PO (07:59)
[2017-11-29] MEDS: SERTRALINE 100 MG TAB PO (07:59)
[2017-11-29] MEDS: LISINOPRIL 10 MG TAB PO (08:00)
[2017-11-29] MEDS: METOPROLOL 25 MG TAB PO ×2 (08:06→20:29)
[2017-11-29] MEDS: ENOXAPARIN 30 MG/0.3 ML SYG SC (08:06)
[2017-11-29] MEDS: TAMSULOSIN (SR) 0.4 MG CAP PO (20:29)
[2017-11-29] MEDS: ATORVASTATIN 40 MG TAB PO (20:29)
[2017-11-29] MEDS: RANOLAZINE (SR) 500 MG TAB PO (20:29)
[2017-11-29] MEDS: ZOLPIDEM 5 MG TAB PO (21:26)
[2017-11-30] MEDS: morphine 2 MG INJ IV ×3 (00:48→14:45)
[2017-11-30] MEDS: METOPROLOL 25 MG TAB PO (09:00)
[2017-11-30] MEDS: GABAPENTIN 100 MG CAP PO (09:41)
[2017-11-30] MEDS: predniSONE 5 MG TAB PO (09:41)
[2017-11-30] MEDS: CYCLOSPORINE 100 MG CAP PO (09:41)
[2017-11-30] MEDS: RANOLAZINE (SR) 500 MG TAB PO (09:42)
[2017-11-30] MEDS: CYCLOSPORINE 25 MG CAP PO (09:42)
[2017-11-30] MEDS: FAMOTIDINE 20 MG TAB PO (09:42)
[2017-11-30] MEDS: LISINOPRIL 10 MG TAB PO (09:42)
[2017-11-30] MEDS: SERTRALINE 100 MG TAB PO (09:42)
[2017-11-30] MEDS: ENOXAPARIN 30 MG/0.3 ML SYG SC (09:57)
== END 2017-11-30 16:20 | disposition home or self-care (01) ==
LOC: TEL 11-27 00:46 → E/R 16:54
DX: R07.89 Other chest pain (principal); N40.0 Benign prostatic hyperplasia without lower urinary tract symptoms; E78.00 Pure hypercholesterolemia, unspecified; Z94.0 Kidney transplant status; I11.0 Hypertensive heart disease with heart failure; F41.9 Anxiety disorder, unspecified; F32.9 Major depressive disorder, single episode, unspecified; I50.9 Heart failure, unspecified; I42.9 Cardiomyopathy, unspecified
CPT/HCPCS: 36415; 71045; 80048; 80053; 80061; 82550; 82553; 83690; 83735; 83880; 84484; 85025; 85610; 85651; 85730; 93005; 93306; 99217; 99285-25; G0378

== ENCOUNTER 2017-12-31 16:30 | Emergency (ER) | payer MEDICARE, OTHER ==
[2017-12-31 17:30] LABS: ADD MAN DIFF? NO
[2017-12-31] MEDS: OXYCODONE/ACETAMINOPHEN (5/325) TAB PO (17:31)
[2017-12-31] MEDS: SOD CHLORIDE 0.9% 1,000 ML IV (17:31)
[2017-12-31 17:34] LABS: BASOPHILS % 0.3 % (0.0-2.0); EOSINOPHILS # 0.1 10^3/ul (0.0-0.5); EOSINOPHILS % 0.6 % (0.0-7.0); HEMATOCRIT 42.6 % (42.0-52.0); LYMPHOCYTES # 1.5 10^3/ul (0.8-2.9); LYMPHOCYTES % 18.7 % (15.0-51.0); MEAN CORPUSCULAR HEMOGLOBIN 28.9 pg (29.0-33.0); MEAN CORPUSCULAR HGB CONC 32.9 g/dl (32.0-37.0); MEAN CORPUSCULAR VOLUME 87.8 fl (82.0-101.0); MEAN PLATELET VOLUME 10.6 fl (7.4-10.4); MONOCYTE # 0.4 10^3/ul (0.3-0.9); MONOCYTES % 5.1 % (0.0-11.0); NEUTROPHIL # 5.8 10^3/ul (1.6-7.5); PLATELET COUNT 278 10^3/UL (140-415); RED BLOOD COUNT 4.85 10^6/ul (4.70-6.10); RED CELL DISTRIBUTION WIDTH 13.6 % (11.5-14.5)
[2017-12-31 17:34] LABS: WHITE BLOOD COUNT 7.9 10^3/ul (4.8-10.8)
[2017-12-31 17:56] LABS: ALANINE AMINOTRANSFERASE 25 IU/L (13-69); ALBUMIN 4.6 g/dl (3.3-4.9); ALBUMIN/GLOBULIN RATIO 1.27; ALKALINE PHOSPHATASE 99 IU/L (42-121); ANION GAP 18 (8-16); ASPARTATE AMINO TRANSFERASE 23 IU/L (15-46); BILIRUBIN,INDIRECT 0.5 mg/dl (0-1.1); BILIRUBIN,TOTAL 0.5 mg/dl (0.2-1.3); BLOOD UREA NITROGEN 9 mg/dl (7-20); CALCIUM 9.9 mg/dl (8.4-10.2); CARBON DIOXIDE 27 mmol/L (21-31); CHLORIDE 102 mmol/L (97-110); CREATININE 1.11 mg/dl (0.61-1.24); GLUCOSE 123 mg/dl (70-220); LIPASE 84 U/L (23-300); POTASSIUM 4.5 mmol/L (3.5-5.1); SODIUM 142 mmol/L (135-144); TOTAL PROTEIN 8.2 g/dl (6.1-8.1)
[2017-12-31 17:58] LABS: ADD UMIC NO; UR ASCORBIC ACID NEGATIVE (NEGATIVE); UR BILIRUBIN (Dip) NEGATIVE (NEGATIVE); UR BLOOD (Dip) NEGATIVE (NEGATIVE); UR CLARITY CLEAR (CLEAR); UR COLOR YELLOW (YELLOW); UR GLUCOSE (Dip) 1+ mg/dL (NEGATIVE); UR KETONES (Dip) NEGATIVE (NEGATIVE); UR LEUKOCYTE ESTERASE (Dip) NEGATIVE Leu/ul (NEGATIVE); UR NITRITE (Dip) NEGATIVE (NEGATIVE); UR SPECIFIC GRAVITY (Dip) 1.009 (1.003-1.030); UR TOTAL PROTEIN (Dip) NEGATIVE (NEGATIVE); UR UROBILINOGEN (Dip) NEGATIVE (NEGATIVE)
[2017-12-31 18:05] LABS: TROPONIN-I < 0.012 ng/ml (0.00-0.12)
== END 2017-12-31 19:06 | disposition home or self-care (01) ==
LOC: E/R 16:30
DX: R10.9 Unspecified abdominal pain (principal); R07.9 Chest pain, unspecified; G89.4 Chronic pain syndrome; I10 Essential (primary) hypertension; Z94.0 Kidney transplant status; Z87.891 Personal history of nicotine dependence
CPT/HCPCS: 36415; 80053; 81003; 83690; 84484; 85025; 87086; 93005; 99284-25

== ENCOUNTER 2018-01-16 03:41 | Emergency (ER) | payer MEDICARE, OTHER ==
[2018-01-16] MEDS: OXYCODONE/ACETAMINOPHEN (5/325) TAB PO (05:20)
[2018-01-16] MEDS: LORAZEPAM 0.5 MG TAB PO (05:20)
[2018-01-16 06:20] LABS: TROPONIN-I < 0.012 ng/ml (0.000-0.120)
== END 2018-01-16 06:55 | disposition home or self-care (01) ==
LOC: E/R 03:41
DX: R07.9 Chest pain, unspecified (principal); G89.4 Chronic pain syndrome; I10 Essential (primary) hypertension; Z87.891 Personal history of nicotine dependence; Z94.0 Kidney transplant status
CPT/HCPCS: 84484; 93005; 99283

== ENCOUNTER 2018-02-24 23:41 | Emergency (ER) | payer MEDICARE, OTHER ==
[2018-02-25 02:09] LABS: ADD MAN DIFF? NO
[2018-02-25 02:10] LABS: BASOPHILS % 0.5 % (0.0-2.0); EOSINOPHILS # 0.1 10^3/ul (0.0-0.5); EOSINOPHILS % 0.9 % (0.0-7.0); HEMATOCRIT 44.8 % (42.0-52.0); HEMOGLOBIN 14.8 g/dl (14.0-18.0); LYMPHOCYTES # 2.6 10^3/ul (0.8-2.9); LYMPHOCYTES % 29.6 % (15.0-51.0); MEAN CORPUSCULAR HEMOGLOBIN 28.7 pg (29.0-33.0); MEAN PLATELET VOLUME 9.9 fl (7.4-10.4); MONOCYTE # 0.9 10^3/ul (0.3-0.9); MONOCYTES % 10.2 % (0.0-11.0); NEUTROPHILS % 56.8 % (39.0-77.0); PLATELET COUNT 298 10^3/UL (140-415); RED BLOOD COUNT 5.15 10^6/ul (4.70-6.10); RED CELL DISTRIBUTION WIDTH 13.7 % (11.5-14.5)
[2018-02-25 02:10] LABS: WHITE BLOOD COUNT 8.9 10^3/ul (4.8-10.8)
[2018-02-25 02:31] LABS: INR 1.03; PROTIME 13.6 Sec (11.9-14.9); PT RATIO 1.1
[2018-02-25 02:32] LABS: PARTIAL THROMBOPLASTIN TIME 27.5 Sec (25.0-35.0)
[2018-02-25 02:38] LABS: ANION GAP 15 (8-16); BLOOD UREA NITROGEN 16 mg/dl (7-20); CALCIUM 9.7 mg/dl (8.4-10.2); CARBON DIOXIDE 25 mmol/L (21-31); CHLORIDE 101 mmol/L (97-110); CREATININE 0.91 mg/dl (0.61-1.24); GLUCOSE 96 mg/dl (70-220); SODIUM 137 mmol/L (135-144)
[2018-02-25 02:49] LABS: TROPONIN-I < 0.010 ng/ml (0.000-0.120)
[2018-02-25] MEDS: OXYCODONE/ACETAMINOPHEN (5/325) TAB PO (05:00)
== END 2018-02-25 05:06 | disposition home or self-care (01) ==
LOC: E/R 23:41
DX: R07.9 Chest pain, unspecified (principal); I10 Essential (primary) hypertension; Z87.891 Personal history of nicotine dependence
CPT/HCPCS: 36415; 71045; 80048; 84484; 85025; 85610; 85730; 93005; 99285-25

== ENCOUNTER 2018-04-01 15:49 | Emergency (ER) | payer MEDICARE, OTHER ==
[2018-04-01 17:15] LABS: ADD MAN DIFF? NO
[2018-04-01 17:18] LABS: BASOPHILS % 0.2 % (0.0-2.0); EOSINOPHILS # 0.1 10^3/ul (0.0-0.5); EOSINOPHILS % 0.6 % (0.0-7.0); HEMATOCRIT 43.7 % (42.0-52.0); HEMOGLOBIN 14.7 g/dl (14.0-18.0); IMMATURE GRANS #M 0.08 10^3/ul; LYMPHOCYTES # 1.8 10^3/ul (0.8-2.9); LYMPHOCYTES % 21.2 % (15.0-51.0); MEAN CORPUSCULAR HEMOGLOBIN 29.5 pg (29.0-33.0); MEAN CORPUSCULAR HGB CONC 33.6 g/dl (32.0-37.0); MEAN CORPUSCULAR VOLUME 87.8 fl (82.0-101.0); MEAN PLATELET VOLUME 10.2 fl (7.4-10.4); MONOCYTE # 0.8 10^3/ul (0.3-0.9); MONOCYTES % 9.3 % (0.0-11.0); NEUTROPHIL # 5.7 10^3/ul (1.6-7.5); NEUTROPHILS % 67.7 % (39.0-77.0); PLATELET COUNT 274 10^3/UL (140-415); RED BLOOD COUNT 4.98 10^6/ul (4.70-6.10); RED CELL DISTRIBUTION WIDTH 14.2 % (11.5-14.5)
[2018-04-01 17:18] LABS: WHITE BLOOD COUNT 8.4 10^3/ul (4.8-10.8)
[2018-04-01 17:39] LABS: INR 1.02; PROTIME 13.5 Sec (11.9-14.9); PT RATIO 1.1
[2018-04-01 17:43] LABS: ALANINE AMINOTRANSFERASE 20 IU/L (13-69); ALBUMIN 4.4 g/dl (3.3-4.9); ALBUMIN/GLOBULIN RATIO 1.33; ALKALINE PHOSPHATASE 91 IU/L (42-121); ANION GAP 16 (8-16); ASPARTATE AMINO TRANSFERASE 23 IU/L (15-46); BILIRUBIN,INDIRECT 0.6 mg/dl (0-1.1); BILIRUBIN,TOTAL 0.6 mg/dl (0.2-1.3); BLOOD UREA NITROGEN 13 mg/dl (7-20); CALCIUM 10.1 mg/dl (8.4-10.2); CARBON DIOXIDE 25 mmol/L (21-31); CHLORIDE 105 mmol/L (97-110); CREATININE 0.92 mg/dl (0.61-1.24); GLUCOSE 119 mg/dl (70-220); LIPASE 78 U/L (23-300); POTASSIUM 4.5 mmol/L (3.5-5.1); SODIUM 141 mmol/L (135-144); TOTAL PROTEIN 7.7 g/dl (6.1-8.1)
[2018-04-01 17:46] LABS: D-DIMER < 220.00 ng/ml (<460)
[2018-04-01 17:54] LABS: B-TYPE NATRIURETIC PEPTIDE 22 PG/ML (0-125); TROPONIN-I < 0.010 ng/ml (0.000-0.120)
== END 2018-04-01 18:56 | disposition home or self-care (01) ==
LOC: E/R 15:49
DX: R07.9 Chest pain, unspecified (principal); I10 Essential (primary) hypertension; Z87.891 Personal history of nicotine dependence; Z94.0 Kidney transplant status
CPT/HCPCS: 36415; 71045; 80053; 83690; 83880; 84484; 85025; 85378; 85610; 93005; 99285-25

== ENCOUNTER 2018-04-09 23:19 | Observation (INO) | payer MEDICARE, OTHER ==
[2018-04-10] MEDS: LIDOCAINE/MYLANTA 40 ML BTL PO (00:05)
[2018-04-10] MEDS: FAMOTIDINE 20 MG INJ IV (00:06)
[2018-04-10] MEDS: HYDROCODONE/APAP (10/325) TAB PO (00:06)
[2018-04-10 00:15] LABS: ADD MAN DIFF? NO
[2018-04-10 00:29] LABS: BASOPHILS % 0.5 % (0.0-2.0); EOSINOPHILS # 0.1 10^3/ul (0.0-0.5); EOSINOPHILS % 1.2 % (0.0-7.0); HEMATOCRIT 41.3 % (42.0-52.0); HEMOGLOBIN 13.7 g/dl (14.0-18.0); LYMPHOCYTES # 1.8 10^3/ul (0.8-2.9); LYMPHOCYTES % 20.5 % (15.0-51.0); MEAN CORPUSCULAR HEMOGLOBIN 28.8 pg (29.0-33.0); MEAN CORPUSCULAR HGB CONC 33.2 g/dl (32.0-37.0); MEAN CORPUSCULAR VOLUME 86.8 fl (82.0-101.0); MEAN PLATELET VOLUME 10.5 fl (7.4-10.4); MONOCYTE # 1.3 10^3/ul (0.3-0.9); MONOCYTES % 15.4 % (0.0-11.0); NEUTROPHIL # 5.3 10^3/ul (1.6-7.5); NEUTROPHILS % 61.5 % (39.0-77.0); PLATELET COUNT 266 10^3/UL (140-415); RED BLOOD COUNT 4.76 10^6/ul (4.70-6.10); RED CELL DISTRIBUTION WIDTH 14.3 % (11.5-14.5)
[2018-04-10 00:29] LABS: WHITE BLOOD COUNT 8.6 10^3/ul (4.8-10.8)
[2018-04-10 00:34] LABS: ANION GAP 12 (8-16); BLOOD UREA NITROGEN 20 mg/dl (7-20); CALCIUM 9.8 mg/dl (8.4-10.2); CARBON DIOXIDE 25 mmol/L (21-31); CHLORIDE 103 mmol/L (97-110); CREATININE 0.97 mg/dl (0.61-1.24); GLUCOSE 94 mg/dl (70-220); SODIUM 136 mmol/L (135-144)
[2018-04-10 00:46] LABS: TROPONIN-I < 0.010 ng/ml (0.000-0.120)
[2018-04-10] MEDS: ASPIRIN 81 MG TAB PO (01:33)
[2018-04-10] MEDS: KETOROLAC 15 MG INJ IV (01:34)
[2018-04-10] MEDS: NITROGLYCERIN 2% 1 GM OINT PKT TD (01:35)
[2018-04-10] MEDS ORDERED: ONDANSETRON 4 MG INJ IV (02:00)
[2018-04-10] MEDS ORDERED: ACETAMINOPHEN 325 MG TAB PO (02:00)
[2018-04-10] MEDS ORDERED: ZOLPIDEM 5 MG TAB PO (05:00)
[2018-04-10] MEDS ORDERED: NITROGLYCERIN (SL) 0.4 MG TAB SL (05:00)
[2018-04-10 06:52] LABS: CK-MB 0.57 ng/ml (0.0-2.4); TROPONIN-I < 0.010 ng/ml (0.000-0.120)
[2018-04-10 07:02] LABS: CK INDEX 0.7; CREATINE KINASE 77 IU/L (23-200)
[2018-04-10] MEDS: morphine 2 MG INJ IV ×3 (08:24→16:30)
[2018-04-10] MEDS: GABAPENTIN 100 MG CAP PO (08:26)
[2018-04-10] MEDS: LISINOPRIL 10 MG TAB PO (08:26)
[2018-04-10] MEDS: CYCLOSPORINE 25 MG CAP PO (08:26)
[2018-04-10] MEDS: CYCLOSPORINE 100 MG CAP PO ×2 (08:26→21:13)
[2018-04-10] MEDS: SERTRALINE 100 MG TAB PO (08:27)
[2018-04-10] MEDS: FAMOTIDINE 20 MG TAB PO ×2 (08:27→21:13)
[2018-04-10] MEDS: METOPROLOL 25 MG TAB PO ×2 (08:27→21:00)
[2018-04-10] MEDS: predniSONE 5 MG TAB PO (08:27)
[2018-04-10] MEDS: ASPIRIN (EC) 325 MG TAB PO (08:27)
[2018-04-10 12:36] LABS: CREATINE KINASE 68 IU/L (23-200)
[2018-04-10 12:48] LABS: CK INDEX 0.6; CK-MB 0.42 ng/ml (0.0-2.4); TROPONIN-I < 0.010 ng/ml (0.000-0.120)
[2018-04-10 12:49] LABS: TROPONIN-I < 0.010 ng/ml (0.000-0.120)
[2018-04-10] MEDS: TAMSULOSIN (SR) 0.4 MG CAP PO (21:13)
[2018-04-10] MEDS: ISOSORBIDE DINITRATE 10 MG TAB PO (21:13)
[2018-04-10] MEDS: traMADol 50 MG TAB PO (21:43)
[2018-04-11] MEDS: traMADol 50 MG TAB PO (02:44)
[2018-04-11] MEDS: ACETAMINOPHEN 325 MG TAB PO (02:44)
[2018-04-11 06:09] LABS: ADD MAN DIFF? NO
[2018-04-11] MEDS: HYDROCODONE/APAP (5/325) TAB PO (06:09)
[2018-04-11 06:16] LABS: WHITE BLOOD COUNT 6.5 10^3/ul (4.8-10.8)
[2018-04-11 06:16] LABS: BASOPHILS % 0.5 % (0.0-2.0); EOSINOPHILS # 0.2 10^3/ul (0.0-0.5); EOSINOPHILS % 2.8 % (0.0-7.0); HEMATOCRIT 45.1 % (42.0-52.0); HEMOGLOBIN 14.8 g/dl (14.0-18.0); LYMPHOCYTES # 1.9 10^3/ul (0.8-2.9); LYMPHOCYTES % 28.4 % (15.0-51.0); MEAN CORPUSCULAR HEMOGLOBIN 28.7 pg (29.0-33.0); MEAN CORPUSCULAR HGB CONC 32.8 g/dl (32.0-37.0); MEAN CORPUSCULAR VOLUME 87.6 fl (82.0-101.0); MEAN PLATELET VOLUME 10.7 fl (7.4-10.4); MONOCYTE # 0.9 10^3/ul (0.3-0.9); MONOCYTES % 14.1 % (0.0-11.0); NEUTROPHIL # 3.4 10^3/ul (1.6-7.5); NEUTROPHILS % 52.8 % (39.0-77.0); PLATELET COUNT 261 10^3/UL (140-415); RED BLOOD COUNT 5.15 10^6/ul (4.70-6.10); RED CELL DISTRIBUTION WIDTH 14.3 % (11.5-14.5)
[2018-04-11 06:42] LABS: CHOL/HDL RATIO 6.3 RATIO; HDL CHOLESTEROL 39 mg/dl (27-67); LDL CHOLESTEROL,CALCULATED 165 mg/dl; TRIGLYCERIDES 217 mg/dl (0-149)
[2018-04-11 06:42] LABS: CHOLESTEROL 247 mg/dl (100-200)
[2018-04-11 06:43] LABS: ANION GAP 12 (8-16); BLOOD UREA NITROGEN 15 mg/dl (7-20); CALCIUM 9.7 mg/dl (8.4-10.2); CARBON DIOXIDE 28 mmol/L (21-31); CHLORIDE 103 mmol/L (97-110); CREATININE 0.92 mg/dl (0.61-1.24); GLUCOSE 87 mg/dl (70-220); POTASSIUM 4.1 mmol/L (3.5-5.1); SODIUM 139 mmol/L (135-144)
[2018-04-11] MEDS: ASPIRIN (EC) 325 MG TAB PO (08:06)
[2018-04-11] MEDS: ISOSORBIDE DINITRATE 10 MG TAB PO ×3 (08:07→21:00)
[2018-04-11] MEDS: SERTRALINE 100 MG TAB PO (08:07)
[2018-04-11] MEDS: CYCLOSPORINE 25 MG CAP PO (08:07)
[2018-04-11] MEDS: LISINOPRIL 10 MG TAB PO (08:07)
[2018-04-11] MEDS: GABAPENTIN 100 MG CAP PO (08:07)
[2018-04-11] MEDS: CYCLOSPORINE 100 MG CAP PO ×2 (08:07→21:05)
[2018-04-11] MEDS: predniSONE 5 MG TAB PO (08:07)
[2018-04-11] MEDS: FAMOTIDINE 20 MG TAB PO ×2 (08:07→21:05)
[2018-04-11] MEDS: morphine 2 MG INJ IV ×2 (08:13→12:25)
[2018-04-11] MEDS: morphine LIQ (10 MG/5 ML) CUP PO ×2 (16:28→21:05)
[2018-04-11] MEDS: TAMSULOSIN (SR) 0.4 MG CAP PO (21:05)
[2018-04-11] MEDS: ATORVASTATIN 10 MG TAB PO (21:05)
[2018-04-12] MEDS: traMADol 50 MG TAB PO (00:55)
[2018-04-12] MEDS: CYCLOSPORINE 100 MG CAP PO ×2 (07:42→22:34)
[2018-04-12] MEDS: CYCLOSPORINE 25 MG CAP PO (07:42)
[2018-04-12] MEDS: LISINOPRIL 10 MG TAB PO (07:43)
[2018-04-12] MEDS: ASPIRIN (EC) 325 MG TAB PO (07:43)
[2018-04-12] MEDS: FAMOTIDINE 20 MG TAB PO ×2 (07:43→22:24)
[2018-04-12] MEDS: ISOSORBIDE DINITRATE 10 MG TAB PO ×3 (07:43→22:27)
[2018-04-12] MEDS: SERTRALINE 100 MG TAB PO (07:43)
[2018-04-12] MEDS: GABAPENTIN 100 MG CAP PO (07:43)
[2018-04-12] MEDS: predniSONE 5 MG TAB PO (07:43)
[2018-04-12] MEDS: morphine LIQ (10 MG/5 ML) CUP PO ×4 (09:29→22:21)
[2018-04-12] MEDS: MECLIZINE 25 MG TAB PO (22:26)
[2018-04-12] MEDS: TAMSULOSIN (SR) 0.4 MG CAP PO (22:26)
[2018-04-12] MEDS: ATORVASTATIN 10 MG TAB PO (22:26)
[2018-04-13] MEDS: morphine LIQ (10 MG/5 ML) CUP PO (02:45)
[2018-04-13] MEDS: ASPIRIN (EC) 325 MG TAB PO (09:13)
[2018-04-13] MEDS: predniSONE 5 MG TAB PO (09:13)
[2018-04-13] MEDS: LISINOPRIL 10 MG TAB PO (09:13)
[2018-04-13] MEDS: GABAPENTIN 100 MG CAP PO (09:13)
[2018-04-13] MEDS: FAMOTIDINE 20 MG TAB PO (09:13)
[2018-04-13] MEDS: CYCLOSPORINE 100 MG CAP PO (09:13)
[2018-04-13] MEDS: ISOSORBIDE DINITRATE 10 MG TAB PO ×2 (09:14→13:00)
[2018-04-13] MEDS: CYCLOSPORINE 25 MG CAP PO (09:15)
[2018-04-13] MEDS: SERTRALINE 100 MG TAB PO (09:17)
== END 2018-04-13 16:18 | disposition home or self-care (01) ==
LOC: E/R 23:19 → 6WM 04-10 03:31
DX: R07.9 Chest pain, unspecified (principal); E78.5 Hyperlipidemia, unspecified; M54.6 Pain in thoracic spine; F41.8 Other specified anxiety disorders; N40.0 Benign prostatic hyperplasia without lower urinary tract symptoms; Z94.0 Kidney transplant status; I10 Essential (primary) hypertension; D64.9 Anemia, unspecified
CPT/HCPCS: 36415; 71045; 72146; 80048; 80061; 82550; 82553; 84443; 84484; 85025; 93005; 93306; 96374; 99285-25; G0378

== ENCOUNTER 2018-04-22 02:18 | Inpatient (IN) | payer MEDICARE, OTHER ==
[2018-04-22] MEDS: ASPIRIN 325 MG TAB PO (03:36)
[2018-04-22 03:43] LABS: ADD MAN DIFF? NO
[2018-04-22 03:45] LABS: WHITE BLOOD COUNT 10.8 10^3/ul (4.8-10.8)
[2018-04-22 03:45] LABS: BASOPHILS % 0.4 % (0.0-2.0); EOSINOPHILS # 0.2 10^3/ul (0.0-0.5); EOSINOPHILS % 1.4 % (0.0-7.0); HEMATOCRIT 42.2 % (42.0-52.0); LYMPHOCYTES # 2.3 10^3/ul (0.8-2.9); LYMPHOCYTES % 21.6 % (15.0-51.0); MEAN CORPUSCULAR HEMOGLOBIN 28.9 pg (29.0-33.0); MEAN CORPUSCULAR HGB CONC 33.2 g/dl (32.0-37.0); MEAN PLATELET VOLUME 10.5 fl (7.4-10.4); MONOCYTES % 9.7 % (0.0-11.0); NEUTROPHIL # 7.1 10^3/ul (1.6-7.5); NEUTROPHILS % 65.7 % (39.0-77.0); PLATELET COUNT 266 10^3/UL (140-415); RED BLOOD COUNT 4.85 10^6/ul (4.70-6.10); RED CELL DISTRIBUTION WIDTH 13.7 % (11.5-14.5)
[2018-04-22 04:11] LABS: ANION GAP 15 (8-16); BLOOD UREA NITROGEN 17 mg/dl (7-20); CARBON DIOXIDE 29 mmol/L (21-31); CHLORIDE 105 mmol/L (97-110); CREATININE 0.94 mg/dl (0.61-1.24); GLUCOSE 100 mg/dl (70-220); POTASSIUM 4.3 mmol/L (3.5-5.1); SODIUM 145 mmol/L (135-144)
[2018-04-22 04:25] LABS: B-TYPE NATRIURETIC PEPTIDE 54 PG/ML (0-125); TROPONIN-I < 0.012 ng/ml (0.000-0.120)
[2018-04-22] MEDS: LIDOCAINE/MYLANTA 40 ML BTL PO (04:46)
[2018-04-22] MEDS: NITROGLYCERIN (SL) 0.4 MG TAB SL (04:46)
[2018-04-22 11:56] LABS: CREATINE KINASE 68 IU/L (23-200)
[2018-04-22] MEDS ORDERED: MECLIZINE 25 MG TAB PO (12:00)
[2018-04-22] MEDS ORDERED: ZOLPIDEM 5 MG TAB PO (12:00)
[2018-04-22 12:08] LABS: CK INDEX 0.6; CK-MB 0.41 ng/ml (0.0-2.4); TROPONIN-I < 0.012 ng/ml (0.000-0.120)
[2018-04-22] MEDS: morphine 4 MG/ML VIAL IV (12:17)
[2018-04-22] MEDS: AMLODIPINE 5 MG TAB PO (13:32)
[2018-04-22] MEDS: PANTOPRAZOLE (EC) 40 MG TAB PO (13:32)
[2018-04-22] MEDS: SERTRALINE 100 MG TAB PO (13:32)
[2018-04-22] MEDS: CHOLECALCIFEROL 1,000 UNIT TAB PO (13:32)
[2018-04-22] MEDS: MAGNESIUM OXIDE 400 MG TAB PO (13:32)
[2018-04-22] MEDS: GABAPENTIN 100 MG CAP PO (13:32)
[2018-04-22] MEDS: predniSONE 5 MG TAB PO (13:32)
[2018-04-22] MEDS: ISOSORBIDE DINITRATE 10 MG TAB PO ×2 (14:23→20:34)
[2018-04-22] MEDS: CYCLOSPORINE 25 MG CAP PO ×2 (14:23→20:42)
[2018-04-22] MEDS: LISINOPRIL 10 MG TAB PO (14:24)
[2018-04-22 15:33] LABS: ADD UMIC NO; UR ASCORBIC ACID NEGATIVE (NEGATIVE); UR BILIRUBIN (Dip) NEGATIVE (NEGATIVE); UR BLOOD (Dip) NEGATIVE (NEGATIVE); UR CLARITY CLEAR (CLEAR); UR COLOR COLORLESS (YELLOW); UR GLUCOSE (Dip) NEGATIVE (NEGATIVE); UR KETONES (Dip) NEGATIVE (NEGATIVE); UR LEUKOCYTE ESTERASE (Dip) NEGATIVE Leu/ul (NEGATIVE); UR NITRITE (Dip) NEGATIVE (NEGATIVE); UR SPECIFIC GRAVITY (Dip) 1.002 (1.003-1.030); UR TOTAL PROTEIN (Dip) NEGATIVE (NEGATIVE); UR UROBILINOGEN (Dip) NEGATIVE (NEGATIVE)
[2018-04-22] MEDS: HYDROCODONE/APAP (5/325) TAB PO (15:40)
[2018-04-22 17:11] LABS: CREATINE KINASE 61 IU/L (23-200)
[2018-04-22 17:22] LABS: CK INDEX 0.6; CK-MB 0.34 ng/ml (0.0-2.4); TROPONIN-I < 0.012 ng/ml (0.000-0.120)
[2018-04-22] MEDS: morphine 2 MG INJ IV ×2 (17:23→22:50)
[2018-04-22] MEDS: ATORVASTATIN 10 MG TAB PO (20:34)
[2018-04-22] MEDS: TAMSULOSIN (SR) 0.4 MG CAP PO (20:42)
[2018-04-23] MEDS: morphine 2 MG INJ IV ×5 (03:18→21:35)
[2018-04-23 06:17] LABS: ADD MAN DIFF? NO
[2018-04-23 06:32] LABS: WHITE BLOOD COUNT 9.4 10^3/ul (4.8-10.8)
[2018-04-23 06:32] LABS: BASOPHILS % 0.4 % (0.0-2.0); EOSINOPHILS # 0.2 10^3/ul (0.0-0.5); EOSINOPHILS % 1.6 % (0.0-7.0); HEMATOCRIT 43.6 % (42.0-52.0); HEMOGLOBIN 14.5 g/dl (14.0-18.0); LYMPHOCYTES # 2.1 10^3/ul (0.8-2.9); LYMPHOCYTES % 21.8 % (15.0-51.0); MEAN CORPUSCULAR HEMOGLOBIN 29.1 pg (29.0-33.0); MEAN CORPUSCULAR HGB CONC 33.3 g/dl (32.0-37.0); MEAN CORPUSCULAR VOLUME 87.4 fl (82.0-101.0); MEAN PLATELET VOLUME 11.1 fl (7.4-10.4); MONOCYTE # 0.9 10^3/ul (0.3-0.9); MONOCYTES % 9.4 % (0.0-11.0); NEUTROPHIL # 6.2 10^3/ul (1.6-7.5); PLATELET COUNT 274 10^3/UL (140-415); RED BLOOD COUNT 4.99 10^6/ul (4.70-6.10); RED CELL DISTRIBUTION WIDTH 13.8 % (11.5-14.5)
[2018-04-23 06:44] LABS: CHOLESTEROL 186 mg/dl (100-200)
[2018-04-23 06:44] LABS: HDL CHOLESTEROL 37 mg/dl (27-67); LDL CHOLESTEROL,CALCULATED 109 mg/dl; TRIGLYCERIDES 200 mg/dl (0-149)
[2018-04-23 06:49] LABS: ALANINE AMINOTRANSFERASE 29 IU/L (13-69); ALBUMIN 4.1 g/dl (3.3-4.9); ALBUMIN/GLOBULIN RATIO 1.32; ALKALINE PHOSPHATASE 92 IU/L (42-121); ANION GAP 17 (8-16); ASPARTATE AMINO TRANSFERASE 26 IU/L (15-46); BILIRUBIN,INDIRECT 0.6 mg/dl (0-1.1); BILIRUBIN,TOTAL 0.6 mg/dl (0.2-1.3); BLOOD UREA NITROGEN 17 mg/dl (7-20); CALCIUM 9.5 mg/dl (8.4-10.2); CARBON DIOXIDE 27 mmol/L (21-31); CHLORIDE 103 mmol/L (97-110); GLUCOSE 96 mg/dl (70-220); POTASSIUM 4.2 mmol/L (3.5-5.1); SODIUM 143 mmol/L (135-144); TOTAL PROTEIN 7.2 g/dl (6.1-8.1)
[2018-04-23 07:09] LABS: MAGNESIUM 1.8 mg/dl (1.7-2.5)
[2018-04-23] MEDS: CYCLOSPORINE 25 MG CAP PO ×2 (08:39→20:45)
[2018-04-23] MEDS: SERTRALINE 100 MG TAB PO (08:42)
[2018-04-23] MEDS: GABAPENTIN 100 MG CAP PO (08:42)
[2018-04-23] MEDS: AMLODIPINE 5 MG TAB PO (08:43)
[2018-04-23] MEDS: LISINOPRIL 10 MG TAB PO (08:43)
[2018-04-23] MEDS: ISOSORBIDE DINITRATE 10 MG TAB PO ×3 (08:43→20:46)
[2018-04-23] MEDS: PANTOPRAZOLE (EC) 40 MG TAB PO (08:43)
[2018-04-23] MEDS: CHOLECALCIFEROL 1,000 UNIT TAB PO (08:44)
[2018-04-23] MEDS: MAGNESIUM OXIDE 400 MG TAB PO (08:44)
[2018-04-23] MEDS: predniSONE 5 MG TAB PO (08:44)
[2018-04-23 10:43] LABS: ERYTHROCYTE SEDIMENTATION RATE 6 mm/Hr (0-15)
[2018-04-23] MEDS: ATORVASTATIN 10 MG TAB PO (20:44)
[2018-04-23] MEDS: TAMSULOSIN (SR) 0.4 MG CAP PO (20:45)
[2018-04-24] MEDS: morphine 2 MG INJ IV ×5 (02:59→20:37)
[2018-04-24] MEDS: GABAPENTIN 100 MG CAP PO (07:40)
[2018-04-24] MEDS: CYCLOSPORINE 25 MG CAP PO ×2 (07:40→20:36)
[2018-04-24] MEDS: PANTOPRAZOLE (EC) 40 MG TAB PO (07:40)
[2018-04-24] MEDS: SERTRALINE 100 MG TAB PO (07:41)
[2018-04-24] MEDS: CHOLECALCIFEROL 1,000 UNIT TAB PO (07:41)
[2018-04-24] MEDS: LISINOPRIL 10 MG TAB PO (07:41)
[2018-04-24] MEDS: predniSONE 5 MG TAB PO (07:41)
[2018-04-24] MEDS: AMLODIPINE 5 MG TAB PO (07:41)
[2018-04-24] MEDS: MAGNESIUM OXIDE 400 MG TAB PO (07:41)
[2018-04-24] MEDS: ISOSORBIDE DINITRATE 10 MG TAB PO ×3 (07:42→21:56)
[2018-04-24 14:50] LABS: ADD MAN DIFF? NO
[2018-04-24 14:53] LABS: BASOPHILS % 0.2 % (0.0-2.0); EOSINOPHILS # 0.1 10^3/ul (0.0-0.5); EOSINOPHILS % 0.7 % (0.0-7.0); HEMATOCRIT 42.4 % (42.0-52.0); LYMPHOCYTES # 1.5 10^3/ul (0.8-2.9); LYMPHOCYTES % 15.1 % (15.0-51.0); MEAN CORPUSCULAR HEMOGLOBIN 28.9 pg (29.0-33.0); MEAN CORPUSCULAR VOLUME 87.4 fl (82.0-101.0); MEAN PLATELET VOLUME 11.1 fl (7.4-10.4); MONOCYTE # 0.7 10^3/ul (0.3-0.9); MONOCYTES % 7.2 % (0.0-11.0); NEUTROPHIL # 7.3 10^3/ul (1.6-7.5); NEUTROPHILS % 75.6 % (39.0-77.0); PLATELET COUNT 305 10^3/UL (140-415); RED BLOOD COUNT 4.85 10^6/ul (4.70-6.10); RED CELL DISTRIBUTION WIDTH 13.6 % (11.5-14.5)
[2018-04-24 14:53] LABS: WHITE BLOOD COUNT 9.7 10^3/ul (4.8-10.8)
[2018-04-24 15:20] LABS: ANION GAP 13 (8-16); BLOOD UREA NITROGEN 14 mg/dl (7-20); CALCIUM 9.5 mg/dl (8.4-10.2); CARBON DIOXIDE 26 mmol/L (21-31); CHLORIDE 102 mmol/L (97-110); CREATININE 1.02 mg/dl (0.61-1.24); GLUCOSE 124 mg/dl (70-220); POTASSIUM 4.3 mmol/L (3.5-5.1); SODIUM 137 mmol/L (135-144)
[2018-04-24] MEDS: TAMSULOSIN (SR) 0.4 MG CAP PO (20:36)
[2018-04-24] MEDS: ATORVASTATIN 10 MG TAB PO (20:36)
[2018-04-25] MEDS: morphine 2 MG INJ IV ×6 (01:04→22:40)
[2018-04-25 06:07] LABS: ADD MAN DIFF? NO
[2018-04-25 06:14] LABS: BASOPHILS % 0.2 % (0.0-2.0); EOSINOPHILS # 0.1 10^3/ul (0.0-0.5); EOSINOPHILS % 1.3 % (0.0-7.0); HEMATOCRIT 39.8 % (42.0-52.0); HEMOGLOBIN 13.3 g/dl (14.0-18.0); LYMPHOCYTES # 2.2 10^3/ul (0.8-2.9); LYMPHOCYTES % 22.4 % (15.0-51.0); MEAN CORPUSCULAR HEMOGLOBIN 28.9 pg (29.0-33.0); MEAN CORPUSCULAR HGB CONC 33.4 g/dl (32.0-37.0); MEAN CORPUSCULAR VOLUME 86.5 fl (82.0-101.0); MONOCYTE # 0.9 10^3/ul (0.3-0.9); MONOCYTES % 9.4 % (0.0-11.0); NEUTROPHIL # 6.5 10^3/ul (1.6-7.5); NEUTROPHILS % 65.7 % (39.0-77.0); PLATELET COUNT 266 10^3/UL (140-415); RED CELL DISTRIBUTION WIDTH 13.4 % (11.5-14.5)
[2018-04-25 06:14] LABS: WHITE BLOOD COUNT 9.8 10^3/ul (4.8-10.8)
[2018-04-25 06:36] LABS: ANION GAP 13 (8-16); BLOOD UREA NITROGEN 13 mg/dl (7-20); CALCIUM 9.4 mg/dl (8.4-10.2); CARBON DIOXIDE 27 mmol/L (21-31); CHLORIDE 107 mmol/L (97-110); CREATININE 0.87 mg/dl (0.61-1.24); GLUCOSE 88 mg/dl (70-220); SODIUM 143 mmol/L (135-144)
[2018-04-25] MEDS: MAGNESIUM OXIDE 400 MG TAB PO (08:26)
[2018-04-25] MEDS: CYCLOSPORINE 25 MG CAP PO ×2 (08:27→21:05)
[2018-04-25] MEDS: GABAPENTIN 100 MG CAP PO (08:27)
[2018-04-25] MEDS: ISOSORBIDE DINITRATE 10 MG TAB PO ×3 (08:27→21:05)
[2018-04-25] MEDS: PANTOPRAZOLE (EC) 40 MG TAB PO (08:27)
[2018-04-25] MEDS: CHOLECALCIFEROL 1,000 UNIT TAB PO (08:27)
[2018-04-25] MEDS: predniSONE 5 MG TAB PO (08:28)
[2018-04-25] MEDS: SERTRALINE 100 MG TAB PO (08:28)
[2018-04-25] MEDS: AMLODIPINE 5 MG TAB PO (08:28)
[2018-04-25] MEDS: LISINOPRIL 10 MG TAB PO (08:29)
[2018-04-25] MEDS: TAMSULOSIN (SR) 0.4 MG CAP PO (21:04)
[2018-04-25] MEDS: ATORVASTATIN 10 MG TAB PO (21:05)
[2018-04-26] MEDS: morphine 2 MG INJ IV ×3 (02:34→10:52)
[2018-04-26 05:35] LABS: ADD MAN DIFF? NO
[2018-04-26 05:42] LABS: BASOPHILS % 0.3 % (0.0-2.0); EOSINOPHILS # 0.2 10^3/ul (0.0-0.5); EOSINOPHILS % 1.4 % (0.0-7.0); HEMATOCRIT 41.7 % (42.0-52.0); HEMOGLOBIN 13.9 g/dl (14.0-18.0); LYMPHOCYTES # 2.7 10^3/ul (0.8-2.9); LYMPHOCYTES % 24.7 % (15.0-51.0); MEAN CORPUSCULAR HEMOGLOBIN 28.9 pg (29.0-33.0); MEAN CORPUSCULAR HGB CONC 33.3 g/dl (32.0-37.0); MEAN CORPUSCULAR VOLUME 86.7 fl (82.0-101.0); MEAN PLATELET VOLUME 10.5 fl (7.4-10.4); MONOCYTES % 9.4 % (0.0-11.0); NEUTROPHIL # 6.8 10^3/ul (1.6-7.5); NEUTROPHILS % 63.1 % (39.0-77.0); PLATELET COUNT 265 10^3/UL (140-415); RED BLOOD COUNT 4.81 10^6/ul (4.70-6.10); RED CELL DISTRIBUTION WIDTH 13.3 % (11.5-14.5)
[2018-04-26 05:42] LABS: WHITE BLOOD COUNT 10.8 10^3/ul (4.8-10.8)
[2018-04-26 06:20] LABS: ANION GAP 12 (8-16); BLOOD UREA NITROGEN 11 mg/dl (7-20); CALCIUM 9.8 mg/dl (8.4-10.2); CARBON DIOXIDE 31 mmol/L (21-31); CHLORIDE 102 mmol/L (97-110); CREATININE 0.89 mg/dl (0.61-1.24); GLUCOSE 85 mg/dl (70-220); POTASSIUM 4.5 mmol/L (3.5-5.1); SODIUM 140 mmol/L (135-144)
[2018-04-26] MEDS: PANTOPRAZOLE (EC) 40 MG TAB PO (08:58)
[2018-04-26] MEDS: GABAPENTIN 100 MG CAP PO (08:58)
[2018-04-26] MEDS: SERTRALINE 100 MG TAB PO (08:58)
[2018-04-26] MEDS: CHOLECALCIFEROL 1,000 UNIT TAB PO (08:58)
[2018-04-26] MEDS: CYCLOSPORINE 25 MG CAP PO ×2 (08:58→20:39)
[2018-04-26] MEDS: predniSONE 5 MG TAB PO (08:59)
[2018-04-26] MEDS: LISINOPRIL 10 MG TAB PO (08:59)
[2018-04-26] MEDS: MAGNESIUM OXIDE 400 MG TAB PO (08:59)
[2018-04-26] MEDS: AMLODIPINE 5 MG TAB PO (09:00)
[2018-04-26] MEDS: ISOSORBIDE DINITRATE 10 MG TAB PO ×4 (09:00→21:00)
[2018-04-26] MEDS: morphine LIQ (10 MG/5 ML) CUP PO ×3 (15:05→23:31)
[2018-04-26] MEDS: ATORVASTATIN 10 MG TAB PO (20:39)
[2018-04-26] MEDS: TAMSULOSIN (SR) 0.4 MG CAP PO (20:39)
[2018-04-26] MEDS: RANOLAZINE (SR) 500 MG TAB PO (20:39)
[2018-04-27] MEDS: morphine LIQ (10 MG/5 ML) CUP PO ×3 (03:28→15:45)
[2018-04-27 06:04] LABS: ADD MAN DIFF? NO
[2018-04-27 06:11] LABS: WHITE BLOOD COUNT 10.8 10^3/ul (4.8-10.8)
[2018-04-27 06:11] LABS: BASOPHILS % 0.3 % (0.0-2.0); EOSINOPHILS # 0.2 10^3/ul (0.0-0.5); EOSINOPHILS % 1.8 % (0.0-7.0); HEMATOCRIT 42.1 % (42.0-52.0); HEMOGLOBIN 14.1 g/dl (14.0-18.0); LYMPHOCYTES # 2.3 10^3/ul (0.8-2.9); LYMPHOCYTES % 20.8 % (15.0-51.0); MEAN CORPUSCULAR HEMOGLOBIN 29.1 pg (29.0-33.0); MEAN CORPUSCULAR HGB CONC 33.5 g/dl (32.0-37.0); MEAN PLATELET VOLUME 10.7 fl (7.4-10.4); MONOCYTES % 9.6 % (0.0-11.0); NEUTROPHIL # 7.2 10^3/ul (1.6-7.5); NEUTROPHILS % 66.2 % (39.0-77.0); PLATELET COUNT 277 10^3/UL (140-415); RED BLOOD COUNT 4.84 10^6/ul (4.70-6.10); RED CELL DISTRIBUTION WIDTH 13.3 % (11.5-14.5)
[2018-04-27 07:23] LABS: ANION GAP 14 (8-16); BLOOD UREA NITROGEN 11 mg/dl (7-20); CALCIUM 9.6 mg/dl (8.4-10.2); CARBON DIOXIDE 28 mmol/L (21-31); CHLORIDE 101 mmol/L (97-110); CREATININE 0.92 mg/dl (0.61-1.24); GLUCOSE 84 mg/dl (70-220); SODIUM 139 mmol/L (135-144)
[2018-04-27] MEDS: RANOLAZINE (SR) 500 MG TAB PO (08:52)
[2018-04-27] MEDS: CHOLECALCIFEROL 1,000 UNIT TAB PO (08:52)
[2018-04-27] MEDS: PANTOPRAZOLE (EC) 40 MG TAB PO (08:52)
[2018-04-27] MEDS: CYCLOSPORINE 25 MG CAP PO (08:52)
[2018-04-27] MEDS: MAGNESIUM OXIDE 400 MG TAB PO (08:52)
[2018-04-27] MEDS: AMLODIPINE 5 MG TAB PO (08:53)
[2018-04-27] MEDS: LISINOPRIL 10 MG TAB PO (08:53)
[2018-04-27] MEDS: GABAPENTIN 100 MG CAP PO (08:53)
[2018-04-27] MEDS: SERTRALINE 100 MG TAB PO (08:53)
[2018-04-27] MEDS: ISOSORBIDE DINITRATE 10 MG TAB PO ×2 (08:53→13:00)
[2018-04-27] MEDS: predniSONE 5 MG TAB PO (08:54)
[2018-04-27] MEDS: ONDANSETRON 4 MG INJ IV (13:12)
== END 2018-04-27 19:00 | disposition home or self-care (01) | DRG 313 ==
LOC: E/R 02:18 → 6WM 07:08
DX: R07.89 Other chest pain (principal); Z94.0 Kidney transplant status; I42.9 Cardiomyopathy, unspecified; F32.9 Major depressive disorder, single episode, unspecified; F41.9 Anxiety disorder, unspecified; E78.5 Hyperlipidemia, unspecified; D64.9 Anemia, unspecified; N40.0 Benign prostatic hyperplasia without lower urinary tract symptoms; R00.1 Bradycardia, unspecified; Z79.899 Other long term (current) drug therapy; I10 Essential (primary) hypertension; M54.9 Dorsalgia, unspecified
CPT/HCPCS: 36415; 71045; 80048; 80053; 80061; 81003; 82550; 82553; 83735; 83880; 84443; 84484; 85025; 85651; 93005; 99285-25; G0378

== ENCOUNTER 2018-04-30 18:08 | Emergency (ER) | payer MEDICARE, OTHER | END 2018-04-30 19:04 | disposition home or self-care (01) | LOC: FTE 18:08 | DX: R51 Headache (principal); I10 Essential (primary) hypertension | CPT/HCPCS: 99282 ==

== ENCOUNTER 2018-08-06 19:26 | Emergency (ER) | payer MEDICARE, OTHER ==
[2018-08-06 21:11] LABS: ADD MAN DIFF? NO
[2018-08-06] MEDS: ONDANSETRON 4 MG INJ IV (21:15)
[2018-08-06] MEDS: SOD CHLORIDE 0.9% 1,000 ML IV (21:15)
[2018-08-06] MEDS: ACETAMINOPHEN 500 MG TAB PO (21:16)
[2018-08-06 21:20] LABS: BASOPHILS % 0.3 % (0.0-2.0); EOSINOPHILS # 0.1 10^3/ul (0.0-0.5); EOSINOPHILS % 0.9 % (0.0-7.0); HEMATOCRIT 37.2 % (42.0-52.0); HEMOGLOBIN 12.2 g/dl (14.0-18.0); LYMPHOCYTES # 1.7 10^3/ul (0.8-2.9); LYMPHOCYTES % 16.5 % (15.0-51.0); MEAN CORPUSCULAR HEMOGLOBIN 29.5 pg (29.0-33.0); MEAN CORPUSCULAR HGB CONC 32.8 g/dl (32.0-37.0); MEAN CORPUSCULAR VOLUME 90.1 fl (82.0-101.0); MEAN PLATELET VOLUME 10.7 fl (7.4-10.4); MONOCYTES % 9.7 % (0.0-11.0); NEUTROPHIL # 7.4 10^3/ul (1.6-7.5); NEUTROPHILS % 70.9 % (39.0-77.0); PLATELET COUNT 270 10^3/UL (140-415); RED BLOOD COUNT 4.13 10^6/ul (4.70-6.10); RED CELL DISTRIBUTION WIDTH 13.5 % (11.5-14.5)
[2018-08-06 21:20] LABS: WHITE BLOOD COUNT 10.4 10^3/ul (4.8-10.8)
[2018-08-06 21:36] LABS: ANION GAP 9 (5-13); BLOOD UREA NITROGEN 14 mg/dl (7-20); CALCIUM 9.7 mg/dl (8.4-10.2); CARBON DIOXIDE 27 mmol/L (21-31); CHLORIDE 101 mmol/L (97-110); CREATININE 1.19 mg/dl (0.61-1.24); Estimated GFR > 60 mL/min (>60); GLUCOSE 109 mg/dl (70-220); MAGNESIUM 1.8 mg/dl (1.7-2.5); PHOSPHORUS 4.2 mg/dl (2.5-4.9); POTASSIUM 4.3 mmol/L (3.5-5.1); SODIUM 137 mmol/L (135-144)
== END 2018-08-07 00:04 | disposition home or self-care (01) ==
LOC: E/R 08-07 00:04
DX: R11.2 Nausea with vomiting, unspecified (principal); I10 Essential (primary) hypertension; Z94.0 Kidney transplant status
CPT/HCPCS: 36415; 71045; 80048; 83735; 84100; 85025; 87400; 96374; 99284-25

== ENCOUNTER 2018-09-04 16:09 | Emergency (ER) | payer MEDICARE, OTHER ==
[2018-09-04] MEDS: KETOROLAC 15 MG INJ IV (21:29)
[2018-09-04] MEDS: ONDANSETRON 4 MG INJ IV (21:29)
[2018-09-04 21:41] LABS: ADD MAN DIFF? NO
[2018-09-04 21:42] LABS: BASOPHILS % 0.3 % (0.0-2.0); EOSINOPHILS # 0.1 10^3/ul (0.0-0.5); EOSINOPHILS % 0.5 % (0.0-7.0); HEMATOCRIT 41.6 % (42.0-52.0); HEMOGLOBIN 13.8 g/dl (14.0-18.0); LYMPHOCYTES # 1.6 10^3/ul (0.8-2.9); LYMPHOCYTES % 16.3 % (15.0-51.0); MEAN CORPUSCULAR HEMOGLOBIN 29.4 pg (29.0-33.0); MEAN CORPUSCULAR HGB CONC 33.2 g/dl (32.0-37.0); MEAN CORPUSCULAR VOLUME 88.5 fl (82.0-101.0); MEAN PLATELET VOLUME 11.1 fl (7.4-10.4); MONOCYTE # 0.7 10^3/ul (0.3-0.9); MONOCYTES % 6.5 % (0.0-11.0); NEUTROPHIL # 7.6 10^3/ul (1.6-7.5); NEUTROPHILS % 75.7 % (39.0-77.0); PLATELET COUNT 299 10^3/UL (140-415); RED CELL DISTRIBUTION WIDTH 12.6 % (11.5-14.5)
[2018-09-04 21:59] LABS: ALANINE AMINOTRANSFERASE 25 IU/L (13-69); ALBUMIN 4.7 g/dl (3.3-4.9); ALBUMIN/GLOBULIN RATIO 1.34; ALKALINE PHOSPHATASE 123 IU/L (42-121); ANION GAP 10 (5-13); ASPARTATE AMINO TRANSFERASE 28 IU/L (15-46); BILIRUBIN,INDIRECT 0.4 mg/dl (0-1.1); BILIRUBIN,TOTAL 0.4 mg/dl (0.2-1.3); BLOOD UREA NITROGEN 19 mg/dl (7-20); CALCIUM 10.2 mg/dl (8.4-10.2); CARBON DIOXIDE 25 mmol/L (21-31); CHLORIDE 101 mmol/L (97-110); CREATININE 0.99 mg/dl (0.61-1.24); Estimated GFR > 60 mL/min (>60); GLUCOSE 113 mg/dl (70-220); LIPASE 60 U/L (23-300); POTASSIUM 3.9 mmol/L (3.5-5.1); SODIUM 136 mmol/L (135-144); TOTAL PROTEIN 8.2 g/dl (6.1-8.1)
[2018-09-04 22:11] LABS: TROPONIN-I < 0.012 ng/ml (0.000-0.120)
[2018-09-04] MEDS: OXYCODONE/ACETAMINOPHEN (5/325) TAB PO (22:47)
== END 2018-09-04 23:22 | disposition home or self-care (01) ==
LOC: E/R 16:09
DX: R07.9 Chest pain, unspecified (principal); R40.2142 Coma scale, eyes open, spontaneous, at arrival to emergency department; R40.2362 Coma scale, best motor response, obeys commands, at arrival to emergency department; R40.2252 Coma scale, best verbal response, oriented, at arrival to emergency department; I10 Essential (primary) hypertension; Z94.0 Kidney transplant status
CPT/HCPCS: 36415; 71045; 80053; 83690; 84484; 85025; 93005; 96374; 96375; 99284-25

== ENCOUNTER 2018-09-14 15:36 | Emergency (ER) | payer MEDICARE, OTHER ==
[2018-09-14 22:04] LABS: TROPONIN-I < 0.012 ng/ml (0.000-0.120)
[2018-09-14] MEDS: OXYCODONE/ACETAMINOPHEN (5/325) TAB PO (22:34)
== END 2018-09-14 22:43 | disposition home or self-care (01) ==
LOC: E/R 15:36
DX: R07.9 Chest pain, unspecified (principal); I10 Essential (primary) hypertension; Z72.89 Other problems related to lifestyle
CPT/HCPCS: 84484; 93005; 93971; 99284-25

== ENCOUNTER 2018-09-16 17:14 | Emergency (ER) | payer MEDICARE, OTHER ==
[2018-09-16 17:29] LABS: ADD MAN DIFF? NO
[2018-09-16 17:35] LABS: WHITE BLOOD COUNT 8.2 10^3/ul (4.8-10.8)
[2018-09-16 17:35] LABS: BASOPHILS % 0.4 % (0.0-2.0); EOSINOPHILS % 0.2 % (0.0-7.0); HEMATOCRIT 40.7 % (42.0-52.0); HEMOGLOBIN 13.6 g/dl (14.0-18.0); LYMPHOCYTES # 1.5 10^3/ul (0.8-2.9); LYMPHOCYTES % 17.6 % (15.0-51.0); MEAN CORPUSCULAR HEMOGLOBIN 29.8 pg (29.0-33.0); MEAN CORPUSCULAR HGB CONC 33.4 g/dl (32.0-37.0); MEAN CORPUSCULAR VOLUME 89.3 fl (82.0-101.0); MEAN PLATELET VOLUME 10.5 fl (7.4-10.4); MONOCYTE # 0.6 10^3/ul (0.3-0.9); MONOCYTES % 6.8 % (0.0-11.0); NEUTROPHIL # 6.1 10^3/ul (1.6-7.5); NEUTROPHILS % 74.1 % (39.0-77.0); PLATELET COUNT 276 10^3/UL (140-415); RED BLOOD COUNT 4.56 10^6/ul (4.70-6.10); RED CELL DISTRIBUTION WIDTH 12.7 % (11.5-14.5)
[2018-09-16 18:00] LABS: ANION GAP 14 (5-13); BLOOD UREA NITROGEN 13 mg/dl (7-20); CALCIUM 10.1 mg/dl (8.4-10.2); CARBON DIOXIDE 22 mmol/L (21-31); CHLORIDE 104 mmol/L (97-110); CREATININE 1.05 mg/dl (0.61-1.24); Estimated GFR > 60 mL/min (>60); GLUCOSE 127 mg/dl (70-220); POTASSIUM 4.7 mmol/L (3.5-5.1); SODIUM 140 mmol/L (135-144)
[2018-09-16 18:11] LABS: TROPONIN-I < 0.012 ng/ml (0.000-0.120)
[2018-09-16] MEDS: HYDROCODONE/APAP (10/325) TAB PO (19:36)
[2018-09-16 21:15] LABS: TROPONIN-I < 0.012 ng/ml (0.000-0.120)
== END 2018-09-16 21:56 | disposition home or self-care (01) ==
LOC: E/R 17:14
DX: R07.9 Chest pain, unspecified (principal); I10 Essential (primary) hypertension; G89.29 Other chronic pain; Z94.0 Kidney transplant status
CPT/HCPCS: 71045; 80048; 84484; 85025; 93005; 99285-25

== ENCOUNTER 2018-09-23 15:55 | Emergency (ER) | payer MEDICARE, OTHER ==
[2018-09-23 16:19] LABS: ADD MAN DIFF? NO
[2018-09-23] MEDS: ONDANSETRON (ODT) 4 MG TAB ODT (16:20)
[2018-09-23] MEDS: HYDROCODONE/APAP (10/325) TAB PO (16:20)
[2018-09-23 16:24] LABS: BASOPHILS % 0.2 % (0.0-2.0); EOSINOPHILS % 0.1 % (0.0-7.0); HEMATOCRIT 41.5 % (42.0-52.0); HEMOGLOBIN 14.1 g/dl (14.0-18.0); LYMPHOCYTES # 1.5 10^3/ul (0.8-2.9); LYMPHOCYTES % 14.2 % (15.0-51.0); MEAN CORPUSCULAR HEMOGLOBIN 29.8 pg (29.0-33.0); MEAN CORPUSCULAR VOLUME 87.7 fl (82.0-101.0); MEAN PLATELET VOLUME 10.7 fl (7.4-10.4); MONOCYTE # 0.5 10^3/ul (0.3-0.9); NEUTROPHIL # 8.3 10^3/ul (1.6-7.5); NEUTROPHILS % 79.8 % (39.0-77.0); PLATELET COUNT 296 10^3/UL (140-415); RED BLOOD COUNT 4.73 10^6/ul (4.70-6.10); RED CELL DISTRIBUTION WIDTH 12.7 % (11.5-14.5)
[2018-09-23 16:24] LABS: WHITE BLOOD COUNT 10.4 10^3/ul (4.8-10.8)
[2018-09-23 16:41] LABS: ANION GAP 12 (5-13); BLOOD UREA NITROGEN 16 mg/dl (7-20); CALCIUM 10.5 mg/dl (8.4-10.2); CARBON DIOXIDE 24 mmol/L (21-31); CHLORIDE 104 mmol/L (97-110); CREATININE 1.31 mg/dl (0.61-1.24); Estimated GFR > 60 mL/min (>60); GLUCOSE 118 mg/dl (70-220); POTASSIUM 4.1 mmol/L (3.5-5.1); SODIUM 140 mmol/L (135-144)
[2018-09-23 16:51] LABS: TROPONIN-I < 0.012 ng/ml (0.000-0.120)
[2018-09-23] MEDS ORDERED: LORAZEPAM 1 MG TAB (16:58)
[2018-09-23] MEDS: LORAZEPAM 2 MG INJ IV (17:16)
[2018-09-23 19:29] LABS: TROPONIN-I < 0.012 ng/ml (0.000-0.120)
== END 2018-09-23 19:53 | disposition home or self-care (01) ==
LOC: E/R 15:55
DX: G89.29 Other chronic pain (principal); I10 Essential (primary) hypertension
CPT/HCPCS: 36415; 71045; 80048; 84484; 85025; 93005; 96372; 99285-25

== ENCOUNTER 2019-01-18 16:37 | Emergency (ER) | payer MEDICARE, OTHER ==
[2019-01-18 17:21] LABS: ADD MAN DIFF? NO
[2019-01-18 17:23] LABS: BASOPHILS % 0.3 % (0.0-2.0); EOSINOPHILS % 0.3 % (0.0-7.0); HEMATOCRIT 36.4 % (42.0-52.0); HEMOGLOBIN 12.2 g/dl (14.0-18.0); LYMPHOCYTES # 1.5 10^3/ul (0.8-2.9); LYMPHOCYTES % 15.5 % (15.0-51.0); MEAN CORPUSCULAR HEMOGLOBIN 29.9 pg (29.0-33.0); MEAN CORPUSCULAR HGB CONC 33.5 g/dl (32.0-37.0); MEAN CORPUSCULAR VOLUME 89.2 fl (82.0-101.0); MEAN PLATELET VOLUME 10.4 fl (7.4-10.4); MONOCYTE # 0.8 10^3/ul (0.3-0.9); MONOCYTES % 8.6 % (0.0-11.0); NEUTROPHIL # 7.1 10^3/ul (1.6-7.5); NEUTROPHILS % 73.8 % (39.0-77.0); PLATELET COUNT 274 10^3/UL (140-415); RED BLOOD COUNT 4.08 10^6/ul (4.70-6.10); RED CELL DISTRIBUTION WIDTH 12.4 % (11.5-14.5)
[2019-01-18 17:23] LABS: WHITE BLOOD COUNT 9.6 10^3/ul (4.8-10.8)
[2019-01-18 17:40] LABS: ANION GAP 9 (5-13); BLOOD UREA NITROGEN 19 mg/dl (7-20); CALCIUM 9.2 mg/dl (8.4-10.2); CARBON DIOXIDE 24 mmol/L (21-31); CHLORIDE 101 mmol/L (97-110); CREATININE 1.77 mg/dl (0.61-1.24); Estimated GFR 42 mL/min (>60); GLUCOSE 113 mg/dl (70-220); POTASSIUM 4.9 mmol/L (3.5-5.1); SODIUM 134 mmol/L (135-144)
[2019-01-18 17:51] LABS: TROPONIN-I < 0.012 ng/ml (0.000-0.120)
[2019-01-18] MEDS: KETOROLAC 15 MG INJ IV (19:35)
[2019-01-18] MEDS: SOD CHLORIDE 0.9% 500 ML IV (19:35)
== END 2019-01-18 20:41 | disposition home or self-care (01) ==
LOC: E/R 16:37
DX: R07.9 Chest pain, unspecified (principal); I11.0 Hypertensive heart disease with heart failure; I50.9 Heart failure, unspecified; D64.9 Anemia, unspecified; N17.9 Acute kidney failure, unspecified; Z94.0 Kidney transplant status
CPT/HCPCS: 36415; 71045; 80048; 84484; 85025; 93005; 96374; 99285-25

== ENCOUNTER 2019-03-17 09:20 | Emergency (ER) | payer MEDICARE, OTHER ==
[2019-03-17] MEDS: OXYCODONE/ACETAMINOPHEN (5/325) TAB PO (10:13)
[2019-03-17 11:14] LABS: ANION GAP 10 (5-13); BLOOD UREA NITROGEN 11 mg/dl (7-20); CALCIUM 9.9 mg/dl (8.4-10.2); CARBON DIOXIDE 25 mmol/L (21-31); CHLORIDE 107 mmol/L (97-110); CREATININE 0.89 mg/dl (0.61-1.24); Estimated GFR > 60 mL/min (>60); GLUCOSE 95 mg/dl (70-220); POTASSIUM 4.1 mmol/L (3.5-5.1); SODIUM 142 mmol/L (135-144)
== END 2019-03-17 11:35 | disposition home or self-care (01) ==
LOC: E/R 09:20
DX: G89.4 Chronic pain syndrome (principal); I11.0 Hypertensive heart disease with heart failure; I50.9 Heart failure, unspecified; Z94.0 Kidney transplant status
CPT/HCPCS: 76705; 80048; 99284-25